=== PATIENT | female | born 1940 | race Caucasian/White ===

== ENCOUNTER 2016-06-20 22:50 | Inpatient (IN) | payer OTHER ==
[~2016-06-20] VITALS: Ht 149.9 cm; Wt 65.8 kg
[~2016-06-20 22:50] MED LIST: ASMANEX TW200 MICRO1 IH; FLOVENT 22120 INHALA; FLOVENT 22120 INHALA IH; Flovent 220 mcg IH; Inderal PO; LIPITOR20 MG; LIPITOR20 MG PO; MAXAIR AUTOHALE14 GM; MAXAIR AUTOHALE14 GM IH; NYSTATIN15 GM TP; PAIN RELIEF EX500 MG PO; PREVACID SOLUTA30 M1; PREVACID30 MG PO; Reglan PO; SINGULAIR10 MG; SINGULAIR10 MG PO; THEO-24400 MG; THEO-24400 MG PO; Ultram PO; ZYRTEC10 M3 PO; ZYRTEC5 MG PO; nexium PO
[2016-06-20 23:19] LABS: BASE EXCESS -3.8 mEq/L (-3 to +3); BICARBONATE 18.5 mEq/L (22-26); CARBOXY HGB 1.3 % (0-5); COMMENTS - BLOOD GASES C+A+; DEVICE ROOM AIR; METHEMOGLOBIN 0.7 % (0-1.5); PCO2 26 mm Hg (35-45); PO2 53 mm Hg (80-100); SITE RB; TOTAL RESP RATE 22 resp/min; pH 7.46 (7.35-7.45)
[2016-06-21] VITALS (17 sets, daily range): BP systolic 81–112; BP diastolic 43–82
[2016-06-21 00:35] LABS: CHLORIDE 108 mEq/L (99-109); POTASSIUM 3.6 mEq/L (3.7-5.4); SODIUM 136 mEq/L (136-147)
[2016-06-21 00:37] LABS: GLUCOSE 86 mg/dL (70-99)
[2016-06-21 00:38] LABS: ANION GAP 11 MEQ/L (2-14)
[2016-06-21 00:39] LABS: INTER. NORMALIZED RATIO 1.1; PROTHROMBIN TIME 11.1 (9.2-11.2); PTT 29.5 (25-32); TOTAL BILIRUBIN 0.6 mg/dL (0.0-1.0)
[2016-06-21 00:40] LABS: ALKALINE PHOSPHATASE 107 IU/L (3-129)
[2016-06-21 00:41] LABS: GFR ESTIMATE (CALCULATED) > 59 mL/min/
[2016-06-21 00:42] LABS: UREA NITROGEN (BUN) 16 mg/dL (9-23)
[2016-06-21 00:44] LABS: LIPASE 14 U/L (1.0-51.0)
[2016-06-21 00:47] LABS: TROP-I INTERPRETATION NEGATIVE; TROPONIN-I 0.01 ng/mL (0.0-0.30)
[2016-06-21 00:57] LABS: EOSINOPHIL COUNT 0.2 K/uL (0-0.3); HEMATOCRIT 37.4 % (36.0-46.0); IMMATURE GRANULOCYTE (%) 0.7 % (0.0-0.7); IMMATURE GRANULOCYTE COUNT 0.6 K/uL; LYMPHOCYTE COUNT 1.3 K/uL (1.0-2.8); MCH 32.5 PG (29.0-34.0); MCV 95.7 FL (83-99); MONOCYTE (%) 16.2 % (3-12); MONOCYTE COUNT 1.3 K/uL (0-0.8); NEUTROPHIL (%) 64.3 % (45-76); NEUTROPHIL COUNT 5.2 K/uL (1.8-6.4); RBC DIS.WIDTH-CV 12.6 % (11.8-14.6); RBC DIS.WIDTH-SD 42.7 % (39-53); RED BLOOD COUNT 3.91 M/uL (3.80-5.20); WHITE BLOOD COUNT 8.1 K/uL (4.1-10.2)
[2016-06-21 00:58] LABS: MEAN PLAT.VOLUME 10.1 uM^3 (9.5-12.4); PLATELET COUNT 139 K/uL (156-360)
[2016-06-21 01:39] LABS: CREATINE KINASE 899 IU/L (1-294)
[2016-06-21 01:57] LABS: ADD MIUA? YES; BILIRUBIN NEGATIVE; BLOOD SMALL; COLOR YELLOW ((YELLOW)); GLUCOSE (STRIP) NEGATIVE; KETONES 20; LEUKOCYTES SMALL; NITRITE NEGATIVE; PROTEIN (STRIP) 30; SPECIFIC GRAVITY 1.018 (1.000-1.030); UROBILINOGEN 0.2 MG/DL (0.2-1.0)
[2016-06-21 02:12] LABS: BACTERIA 2+ /HPF; MUCUS TRACE /LPF; RED BLOOD CELLS 0-5 /HPF (0-5); UCUL ADDED? YES
[2016-06-21 02:15] LABS: EPITHELIAL CELLS 2+ /HPF; RENAL EPITHELIAL CELLS NONE SEEN /HPF
[2016-06-21 04:08] LABS: BASE EXCESS -8.2 mEq/L (-3 to +3); BICARBONATE 15.6 mEq/L (22-26); CARBOXY HGB 1.6 % (0-5); COMMENTS - BLOOD GASES C+A+; DEVICE NC; METHEMOGLOBIN 1.4 % (0-1.5); O2 FLOW 4 L/MIN; PCO2 27 mm Hg (35-45); PO2 66 mm Hg (80-100); SITE LB; TOTAL RESP RATE 24 resp/min; pH 7.37 (7.35-7.45)
[2016-06-21 04:45] LABS: SALICYLATE < 5.0 MG/DL (15-30)
[2016-06-21 07:51] LABS: TROP-I INTERPRETATION NEGATIVE; TROPONIN-I 0.02 ng/mL (0.0-0.30)
[2016-06-21 08:07] LABS: COMMENTS - BLOOD GASES A+C+; DEVICE VENT; FI02 40 %; SITE RR
[2016-06-21 08:08] LABS: BICARBONATE 15.6 mEq/L (22-26); PCO2 29 mm Hg (35-45); PEEP 5 CM/H20; PO2 83 mm Hg (80-100); PRES. SUPPORT 10 CM/H2O; TIDAL VOLUME 500 ML; TOTAL RESP RATE 18 resp/min; pH 7.34 (7.35-7.45)
[2016-06-21 08:27] LABS: BASE EXCESS -8.9 mEq/L (-3 to +3); CARBOXY HGB 1.8 % (0-5); METHEMOGLOBIN 0.4 % (0-1.5)
[2016-06-21] MEDS ORDERED: LIPITOR20 MG PO (09:07)
[2016-06-21] MEDS ORDERED: MONTELUKAST SOD10 MG PO (09:08)
[2016-06-21] MEDS ORDERED: INDERAL20 MG PO (09:08)
[2016-06-21] MEDS ORDERED: ESOMEPRAZOLE MA40 MG PO (09:08)
[2016-06-21] MEDS ORDERED: PROAIR HFA8.5 GM IH (09:11)
[2016-06-21 09:26] LABS: CREATINE KINASE 740 IU/L (1-294); TOTAL CK 740 IU/L (1-294)
[2016-06-21 09:33] LABS: INFLUENZA A VIRAL ANTIGEN INVALID ASSAY
[2016-06-21 09:34] LABS: INFLUENZA B VIRAL ANTIGEN INVALID ASSAY
[2016-06-21 09:44] LABS: METH RESISTANT S AUREUS PCR POSITIVE (NEGATIVE)
[2016-06-21 09:51] LABS: PROBE CHECK PASS
[2016-06-21 10:06] LABS: CK-MB 2.2 ng/mL (0.0-4.9)
[2016-06-21 15:03] LABS: INTER. NORMALIZED RATIO 1.2
[2016-06-21 15:08] LABS: TROP-I INTERPRETATION NEGATIVE; TROPONIN-I 0.22 ng/mL (0.0-0.30)
[2016-06-21 16:09] LABS: PTT > 150.0 (25-32)
[2016-06-21 17:07] LABS: INFLUENZA A VIRAL ANTIGEN POSITIVE; INFLUENZA B VIRAL ANTIGEN NEGATIVE
[2016-06-22] VITALS (24 sets, daily range): BP systolic 75–110; BP diastolic 43–71
[2016-06-22 06:08] LABS: HEMATOCRIT 34.7 % (36.0-46.0); MCH 32.9 PG (29.0-34.0); MCHC 33.1 G/DL (30.0-36.0); MCV 99.1 FL (83-99); RBC DIS.WIDTH-CV 13.7 % (11.8-14.6); RBC DIS.WIDTH-SD 49.4 % (39-53); WHITE BLOOD COUNT 6.4 K/uL (4.1-10.2)
[2016-06-22 06:49] LABS: ANION GAP 12 MEQ/L (2-14); CHLORIDE 107 MEQ/L (99-109); POTASSIUM 3.5 MEQ/L (3.7-5.4); SAMPLE HEMOLYSIS CHECK 0; SAMPLE ICTERIC CHECK 0; SAMPLE LIPEMIA CHECK 0; SODIUM 134 MEQ/L (136-147); TOTAL BILIRUBIN 0.4 MG/DL (0.0-1.0)
[2016-06-22 06:54] LABS: ALKALINE PHOSPHATASE 70 IU/L (3-129); GFR ESTIMATE (CALCULATED) > 59 mL/min/; GLUCOSE 57 mg/dL (70-99); UREA NITROGEN (BUN) 7 mg/dL (9-23)
[2016-06-22 07:28] LABS: MEAN PLAT.VOLUME 9.8 uM^3 (9.5-12.4); PLATELET COUNT 126 K/uL (156-360)
[2016-06-22 09:28] LABS: MAGNESIUM 1.5 mg/dl (1.3-2.7)
[2016-06-22 12:36] LABS: CREATINE KINASE 609 IU/L (1-294)
[2016-06-23] VITALS (11 sets, daily range): BP systolic 90–132; BP diastolic 58–74
[2016-06-23 17:58] LABS: HEMATOCRIT 35.3 % (36.0-46.0); MCH 33.2 PG (29.0-34.0); MCV 97.8 FL (83-99); RBC DIS.WIDTH-CV 13.2 % (11.8-14.6); RBC DIS.WIDTH-SD 46.8 % (39-53); RED BLOOD COUNT 3.61 M/uL (3.80-5.20); WHITE BLOOD COUNT 5.1 K/uL (4.1-10.2)
[2016-06-23 18:11] LABS: EOSINOPHIL (%) 0.8 % (0-5); IMMATURE GRANULOCYTE (%) 0.6 % (0.0-0.7); LYMPHOCYTE COUNT 1.4 K/uL (1.0-2.8); MEAN PLAT.VOLUME 9.3 uM^3 (9.5-12.4); MONOCYTE (%) 12.7 % (3-12); MONOCYTE COUNT 0.7 K/uL (0-0.8); NEUTROPHIL (%) 59.2 % (45-76); PLATELET COUNT 180 K/uL (156-360)
[2016-06-23 18:19] LABS: ANION GAP 12 MEQ/L (2-14); CHLORIDE 107 MEQ/L (99-109); GFR ESTIMATE (CALCULATED) > 59 mL/min/; POTASSIUM 3.2 MEQ/L (3.7-5.4); SAMPLE HEMOLYSIS CHECK 0; SAMPLE ICTERIC CHECK 0; SAMPLE LIPEMIA CHECK 0; UREA NITROGEN (BUN) 8 mg/dL (9-23)
[2016-06-23 18:40] LABS: GLUCOSE 97 mg/dL (70-99); SODIUM 141 MEQ/L (136-147)
[2016-06-24] VITALS (7 sets, daily range): BP systolic 112–149; BP diastolic 68–80
[2016-06-24 08:57] LABS: ANION GAP 13 MEQ/L (2-14); CHLORIDE 109 MEQ/L (99-109); GFR ESTIMATE (CALCULATED) > 59 mL/min/; GLUCOSE 110 mg/dL (70-99); SAMPLE HEMOLYSIS CHECK 0; SAMPLE ICTERIC CHECK 0; SAMPLE LIPEMIA CHECK 0; SODIUM 141 MEQ/L (136-147); UREA NITROGEN (BUN) 13 mg/dL (9-23)
[2016-06-24 09:00] LABS: POTASSIUM 3.9 MEQ/L (3.7-5.4)
[2016-06-24 09:09] LABS: EOSINOPHIL (%) 0 % (0-5); IMMATURE GRANULOCYTE (%) 0.7 % (0.0-0.7); LYMPHOCYTE COUNT 0.7 K/uL (1.0-2.8); MCH 32.8 PG (29.0-34.0); MCHC 33.4 G/DL (30.0-36.0); MEAN PLAT.VOLUME 9.4 uM^3 (9.5-12.4); MONOCYTE (%) 11.3 % (3-12); MONOCYTE COUNT 0.3 K/uL (0-0.8); NEUTROPHIL (%) 62.6 % (45-76); NEUTROPHIL COUNT 1.7 K/uL (1.8-6.4); PLATELET COUNT 196 K/uL (156-360); RBC DIS.WIDTH-CV 13.2 % (11.8-14.6); RBC DIS.WIDTH-SD 47.3 % (39-53); RED BLOOD COUNT 3.57 M/uL (3.80-5.20)
[2016-06-24 09:10] LABS: WHITE BLOOD COUNT 2.8 K/uL (4.1-10.2)
[2016-06-25 00:05] VITALS: BP 153/69
[2016-06-25 04:00] VITALS: BP 113/67
[2016-06-25 08:58] LABS: ANION GAP 14 MEQ/L (2-14); CHLORIDE 105 MEQ/L (99-109); GFR ESTIMATE (CALCULATED) > 59 mL/min/; GLUCOSE 106 mg/dL (70-99); POTASSIUM 3.7 MEQ/L (3.7-5.4); SAMPLE HEMOLYSIS CHECK 0; SAMPLE ICTERIC CHECK 0; SAMPLE LIPEMIA CHECK 0; SODIUM 140 MEQ/L (136-147)
[2016-06-25 08:59] LABS: HEMATOCRIT 33.5 % (36.0-46.0); MCH 33.1 PG (29.0-34.0); MCHC 34.9 G/DL (30.0-36.0); MCV 94.9 FL (83-99); MEAN PLAT.VOLUME 8.8 uM^3 (9.5-12.4); PLATELET COUNT 237 K/uL (156-360); RBC DIS.WIDTH-SD 45.1 % (39-53); RED BLOOD COUNT 3.53 M/uL (3.80-5.20)
[2016-06-25 09:09] LABS: UREA NITROGEN (BUN) 21 mg/dL (9-23)
[2016-06-25 10:59] LABS: TROP-I INTERPRETATION NEGATIVE; TROPONIN-I < 0.01 ng/mL (0.0-0.30)
[2016-06-25 11:40] VITALS: BP 146/78
[2016-06-25 15:17] VITALS: BP 138/78
[2016-06-25 20:32] VITALS: BP 144/88
[2016-06-26] VITALS: BP 132/81
[2016-06-26 04:11] LABS: HEMATOCRIT 33.8 % (36.0-46.0); MCH 32.6 PG (29.0-34.0); MCHC 34.3 G/DL (30.0-36.0); MCV 94.9 FL (83-99); MEAN PLAT.VOLUME 8.7 uM^3 (9.5-12.4); PLATELET COUNT 274 K/uL (156-360); RBC DIS.WIDTH-CV 12.3 % (11.8-14.6); RBC DIS.WIDTH-SD 41.3 % (39-53); RED BLOOD COUNT 3.56 M/uL (3.80-5.20); WHITE BLOOD COUNT 6.9 K/uL (4.1-10.2)
[2016-06-26 04:24] LABS: CHLORIDE 105 mEq/L (99-109); POTASSIUM 3.8 mEq/L (3.7-5.4); SODIUM 139 mEq/L (136-147)
[2016-06-26 04:26] LABS: GLUCOSE 101 mg/dL (70-99)
[2016-06-26 04:27] LABS: ANION GAP 11 MEQ/L (2-14)
[2016-06-26 04:30] LABS: GFR ESTIMATE (CALCULATED) > 59 mL/min/
[2016-06-26 04:31] LABS: UREA NITROGEN (BUN) 29 mg/dL (9-23)
[2016-06-26 07:27] VITALS: BP 137/82
[2016-06-26 15:28] VITALS: BP 141/73
[2016-06-26 21:05] VITALS: BP 140/86
[2016-06-27] VITALS: BP 124/68
[2016-06-27 07:45] LABS: HEMATOCRIT 33.6 % (36.0-46.0); MCH 32.7 PG (29.0-34.0); MCHC 34.5 G/DL (30.0-36.0); MCV 94.6 FL (83-99); MEAN PLAT.VOLUME 9.1 uM^3 (9.5-12.4); PLATELET COUNT 242 K/uL (156-360); RBC DIS.WIDTH-CV 12.7 % (11.8-14.6); RBC DIS.WIDTH-SD 44.1 % (39-53); RED BLOOD COUNT 3.55 M/uL (3.80-5.20)
[2016-06-27 07:58] LABS: ANION GAP 10 MEQ/L (2-14); CHLORIDE 104 MEQ/L (99-109); GFR ESTIMATE (CALCULATED) > 59 mL/min/; GLUCOSE 112 mg/dL (70-99); POTASSIUM 3.8 MEQ/L (3.7-5.4); SAMPLE HEMOLYSIS CHECK 0; SAMPLE ICTERIC CHECK 0; SAMPLE LIPEMIA CHECK 0; SODIUM 137 MEQ/L (136-147); UREA NITROGEN (BUN) 34 mg/dL (9-23)
[2016-06-27 08:07] LABS: WHITE BLOOD COUNT 9.1 K/uL (4.1-10.2)
[2016-06-27 08:37] VITALS: BP 136/77
[2016-06-27 15:43] VITALS: BP 137/85
[2016-06-27 19:38] VITALS: BP 136/84
[2016-06-27 22:53] LABS: HEMATOCRIT 36.6 % (36.0-46.0); MCV 93.6 FL (83-99)
[2016-06-27 23:43] VITALS: BP 118/79
[2016-06-28 07:33] VITALS: BP 130/74
[2016-06-28 12:22] LABS: HEMATOCRIT 35.6 % (36.0-46.0); MCH 32.9 PG (29.0-34.0); MCHC 35.1 G/DL (30.0-36.0); MCV 93.7 FL (83-99); MEAN PLAT.VOLUME 9.7 uM^3 (9.5-12.4); PLATELET COUNT 301 K/uL (156-360); RBC DIS.WIDTH-CV 12.7 % (11.8-14.6); WHITE BLOOD COUNT 9.2 K/uL (4.1-10.2)
[2016-06-28 12:39] LABS: ANION GAP 9 MEQ/L (2-14); CHLORIDE 103 MEQ/L (99-109); POTASSIUM 3.4 MEQ/L (3.7-5.4); SAMPLE HEMOLYSIS CHECK 0; SAMPLE ICTERIC CHECK 0; SAMPLE LIPEMIA CHECK 0; SODIUM 136 MEQ/L (136-147)
[2016-06-28 12:41] LABS: TOTAL BILIRUBIN 0.8 MG/DL (0.0-1.0)
[2016-06-28 12:45] LABS: ALKALINE PHOSPHATASE 52 IU/L (3-129); GFR ESTIMATE (CALCULATED) > 59 mL/min/; GLUCOSE 101 mg/dL (70-99); UREA NITROGEN (BUN) 36 mg/dL (9-23)
[2016-06-28 15:59] VITALS: BP 127/72
[2016-06-28 16:07] LABS: INTERNAL CONTROL VALID? YES
[2016-06-28 23:30] VITALS: BP 121/72
[2016-06-29 08:21] VITALS: BP 124/65
[2016-06-29 09:20] LABS: ANION GAP 11 MEQ/L (2-14); CHLORIDE 105 MEQ/L (99-109); POTASSIUM 3.6 MEQ/L (3.7-5.4); SAMPLE HEMOLYSIS CHECK 0; SAMPLE ICTERIC CHECK 0; SAMPLE LIPEMIA CHECK 0; SODIUM 138 MEQ/L (136-147)
[2016-06-29 09:26] LABS: GFR ESTIMATE (CALCULATED) > 59 mL/min/; GLUCOSE 73 mg/dL (70-99); UREA NITROGEN (BUN) 31 mg/dL (9-23)
[2016-06-29 09:59] LABS: HEMATOCRIT 35.5 % (36.0-46.0); MCH 32.7 PG (29.0-34.0); MCHC 34.4 G/DL (30.0-36.0); MCV 95.2 FL (83-99); MEAN PLAT.VOLUME 9.9 uM^3 (9.5-12.4); PLATELET COUNT 333 K/uL (156-360); RBC DIS.WIDTH-CV 12.7 % (11.8-14.6); RBC DIS.WIDTH-SD 44.2 % (39-53); RED BLOOD COUNT 3.73 M/uL (3.80-5.20)
[2016-06-29 10:11] LABS: WHITE BLOOD COUNT 12.3 K/uL (4.1-10.2)
[2016-06-29 12:17] VITALS: BP 104/56
[2016-06-29 16:03] VITALS: BP 112/60
[2016-06-29 23:55] VITALS: BP 110/53
[2016-06-30 06:26] LABS: POINT-OF-CARE METER ID UU14188625
[2016-06-30 07:32] LABS: ANION GAP 12 MEQ/L (2-14); CHLORIDE 108 MEQ/L (99-109); GFR ESTIMATE (CALCULATED) > 59 mL/min/; SAMPLE HEMOLYSIS CHECK 1; SAMPLE ICTERIC CHECK 0; SAMPLE LIPEMIA CHECK 0; SODIUM 140 MEQ/L (136-147); UREA NITROGEN (BUN) 24 mg/dL (9-23)
[2016-06-30 07:36] LABS: GLUCOSE 101 mg/dL (70-99)
[2016-06-30 07:43] VITALS: BP 114/62
[2016-06-30 07:49] LABS: HEMATOCRIT 32.9 % (36.0-46.0); MCH 31.4 PG (29.0-34.0); MCHC 32.8 G/DL (30.0-36.0); MCV 95.6 FL (83-99); PLATELET COUNT 305 K/uL (156-360); RBC DIS.WIDTH-CV 13.1 % (11.8-14.6); RBC DIS.WIDTH-SD 45.6 % (39-53); RED BLOOD COUNT 3.44 M/uL (3.80-5.20); WHITE BLOOD COUNT 10.1 K/uL (4.1-10.2)
[2016-06-30 09:15] LABS: EOSINOPHIL (%) 0 % (0-5); HEMATOLOGY COMMENT 1 SMEAR COMPATIBLE; IMMATURE GRANULOCYTE (%) 2.7 % (0.0-0.7); IMMATURE GRANULOCYTE COUNT 0.3 K/uL; LYMPHOCYTE COUNT 0.7 K/uL (1.0-2.8); MONOCYTE (%) 6.6 % (3-12); MONOCYTE COUNT 0.7 K/uL (0-0.8); NEUTROPHIL COUNT 8.5 K/uL (1.8-6.4); USER ID CL
[2016-07-01] VITALS: BP 110/60
[2016-07-01 07:38] VITALS: BP 112/62
[2016-07-01 10:43] LABS: HEMATOCRIT 35.7 % (36.0-46.0); MCH 31.3 PG (29.0-34.0); MCHC 32.2 G/DL (30.0-36.0); MEAN PLAT.VOLUME 9.6 uM^3 (9.5-12.4); PLATELET COUNT 322 K/uL (156-360); RBC DIS.WIDTH-CV 13.2 % (11.8-14.6); RBC DIS.WIDTH-SD 46.2 % (39-53); RED BLOOD COUNT 3.68 M/uL (3.80-5.20); WHITE BLOOD COUNT 14.9 K/uL (4.1-10.2)
[2016-07-01 11:26] LABS: ANION GAP 12 MEQ/L (2-14); CHLORIDE 108 MEQ/L (99-109); GFR ESTIMATE (CALCULATED) > 59 mL/min/; GLUCOSE 136 mg/dL (70-99); POTASSIUM 3.1 MEQ/L (3.7-5.4); SAMPLE HEMOLYSIS CHECK 0; SAMPLE ICTERIC CHECK 0; SAMPLE LIPEMIA CHECK 0; SODIUM 142 MEQ/L (136-147); UREA NITROGEN (BUN) 24 mg/dL (9-23)
[2016-07-01 15:45] VITALS: BP 116/60
[2016-07-02 00:23] VITALS: BP 150/58
[2016-07-02 07:41] VITALS: BP 122/67
[2016-07-02 09:37] LABS: HEMATOCRIT 35.1 % (36.0-46.0); MCH 30.9 PG (29.0-34.0); MCHC 32.2 G/DL (30.0-36.0); MCV 95.9 FL (83-99); MEAN PLAT.VOLUME 9.6 uM^3 (9.5-12.4); PLATELET COUNT 374 K/uL (156-360); RBC DIS.WIDTH-CV 13.1 % (11.8-14.6); RBC DIS.WIDTH-SD 46.1 % (39-53); RED BLOOD COUNT 3.66 M/uL (3.80-5.20); WHITE BLOOD COUNT 16.2 K/uL (4.1-10.2)
[2016-07-02 10:02] LABS: ANION GAP 12 MEQ/L (2-14); CHLORIDE 112 MEQ/L (99-109); GFR ESTIMATE (CALCULATED) > 59 mL/min/; GLUCOSE 130 mg/dL (70-99); SAMPLE HEMOLYSIS CHECK 0; SAMPLE ICTERIC CHECK 0; SAMPLE LIPEMIA CHECK 0; SODIUM 143 MEQ/L (136-147); UREA NITROGEN (BUN) 23 mg/dL (9-23)
[2016-07-02 10:03] LABS: POTASSIUM 4.1 MEQ/L (3.7-5.4)
[2016-07-02 16:00] VITALS: BP 124/72
[2016-07-02 23:50] VITALS: BP 115/65
[2016-07-03 08:32] VITALS: BP 122/76
[2016-07-03 09:30] LABS: HEMATOCRIT 30.9 % (36.0-46.0); MCH 31.8 PG (29.0-34.0); MCHC 32.7 G/DL (30.0-36.0); MCV 97.2 FL (83-99); MEAN PLAT.VOLUME 9.6 uM^3 (9.5-12.4); PLATELET COUNT 266 K/uL (156-360); RBC DIS.WIDTH-CV 13.2 % (11.8-14.6); RBC DIS.WIDTH-SD 46.7 % (39-53); RED BLOOD COUNT 3.18 M/uL (3.80-5.20); WHITE BLOOD COUNT 16.7 K/uL (4.1-10.2)
[2016-07-03 09:54] LABS: ANION GAP 9 MEQ/L (2-14); CHLORIDE 113 MEQ/L (99-109); GFR ESTIMATE (CALCULATED) > 59 mL/min/; POTASSIUM 3.5 MEQ/L (3.7-5.4); SAMPLE HEMOLYSIS CHECK 0; SAMPLE ICTERIC CHECK 0; SAMPLE LIPEMIA CHECK 0; SODIUM 142 MEQ/L (136-147); UREA NITROGEN (BUN) 24 mg/dL (9-23)
[2016-07-03 09:55] LABS: GLUCOSE 66 mg/dL (70-99)
[2016-07-03 12:40] VITALS: BP 100/62
[2016-07-03 15:02] LABS: INTER. NORMALIZED RATIO 1.1; PROTHROMBIN TIME 11.4 (9.2-11.2)
[2016-07-03 15:11] LABS: PTT 24.3 (25-32)
[2016-07-03 23:47] VITALS: BP 104/59
[2016-07-04 07:04] LABS: HEMATOCRIT 30.9 % (36.0-46.0); MCH 32.2 PG (29.0-34.0); MCV 97.5 FL (83-99); PLATELET COUNT 250 K/uL (156-360); RBC DIS.WIDTH-CV 13.4 % (11.8-14.6); RBC DIS.WIDTH-SD 47.3 % (39-53); RED BLOOD COUNT 3.17 M/uL (3.80-5.20); WHITE BLOOD COUNT 12.1 K/uL (4.1-10.2)
[2016-07-04 07:58] VITALS: BP 111/55
[2016-07-04 09:37] LABS: ANION GAP 8 MEQ/L (2-14); CHLORIDE 111 MEQ/L (99-109); GFR ESTIMATE (CALCULATED) > 59 mL/min/; GLUCOSE 68 mg/dL (70-99); POTASSIUM 3.3 MEQ/L (3.7-5.4); SAMPLE HEMOLYSIS CHECK 0; SAMPLE ICTERIC CHECK 0; SAMPLE LIPEMIA CHECK 0; SODIUM 140 MEQ/L (136-147); UREA NITROGEN (BUN) 22 mg/dL (9-23)
[2016-07-04 11:51] LABS: INTER. NORMALIZED RATIO 1.1; PROTHROMBIN TIME 11.4 (9.2-11.2)
[2016-07-04 11:55] LABS: PTT 24.8 (25-32)
[2016-07-04 15:03] VITALS: BP 93/51
[2016-07-04 19:14] LABS: HEMATOCRIT 31.5 % (36.0-46.0); MCV 97.2 FL (83-99)
[2016-07-05] VITALS: BP 102/56
[2016-07-05 02:10] LABS: POINT-OF-CARE METER ID UU14188625
[2016-07-05 02:15] LABS: HEMATOCRIT 30.1 % (36.0-46.0); MCV 96.5 FL (83-99)
[2016-07-05 06:48] LABS: POINT-OF-CARE METER ID UU14188625
[2016-07-05 07:48] VITALS: BP 122/72
[2016-07-05 08:24] LABS: HEMATOCRIT 30.8 % (36.0-46.0); MCV 95.4 FL (83-99)
[2016-07-05 12:06] LABS: ANION GAP 10 MEQ/L (2-14); CHLORIDE 110 MEQ/L (99-109); GFR ESTIMATE (CALCULATED) > 59 mL/min/; POTASSIUM 3.9 MEQ/L (3.7-5.4); SAMPLE HEMOLYSIS CHECK 0; SAMPLE ICTERIC CHECK 0; SAMPLE LIPEMIA CHECK 0; SODIUM 137 MEQ/L (136-147); UREA NITROGEN (BUN) 21 mg/dL (9-23)
[2016-07-05 12:15] LABS: GLUCOSE 160 mg/dL (70-99)
[2016-07-05 14:22] LABS: ABS NEUTROPHIL COUNT 12.77; ANISOCYTOSIS OCC; BURR CELLS OCC; EOSINOPHIL (%) 0.1 % (0-5); IMMATURE GRANULOCYTE (%) 5.1 % (0.0-0.7); IMMATURE GRANULOCYTE COUNT 0.7 K/uL; LYMPHOCYTE COUNT 1.2 K/uL (1.0-2.8); MCH 32.2 PG (29.0-34.0); MCHC 33.8 G/DL (30.0-36.0); MEAN PLAT.VOLUME 10.2 uM^3 (9.5-12.4); MONOCYTE (%) 3.4 % (3-12); MONOCYTE COUNT 0.5 K/uL (0-0.8); NEUTROPHIL (%) 82.8 % (45-76); NEUTROPHIL COUNT 11.6 K/uL (1.8-6.4); PLAT.SUFFICIENCY ADEQUATE; PLATELET COUNT 185 K/uL (156-360); RBC DIS.WIDTH-CV 13.1 % (11.8-14.6); RBC DIS.WIDTH-SD 45.5 % (39-53); RED BLOOD COUNT 3.23 M/uL (3.80-5.20); USER ID CL
[2016-07-05 15:24] LABS: HEMATOCRIT 29.8 % (36.0-46.0); MCV 95.5 FL (83-99)
[2016-07-05 23:01] LABS: HEMATOCRIT 29.5 % (36.0-46.0); MCV 96.7 FL (83-99)
[2016-07-06] VITALS: BP 113/68
== END 2016-07-06 01:12 | disposition short-term general hospital (02) | DRG 853 ==
LOC: EME 22:50 → 4WEST 06-21 03:40 → 5SOUTH 06-21 03:40 → EDOF 06-21 03:40 → 4WEST 06-21 08:24 → 5SOUTH 06-23 12:00
PROVIDERS: Emergency Medicine; Hospitalist; Internal Medicine; Internal Medicine Pulmonary Disease; Physician Assistant; Physician Assistant Medical; Physician Assistant Surgical; Student in an Organized Health Care Education/Training Program; Surgery
DX: A41.89 Other specified sepsis (principal); J96.01 Acute respiratory failure with hypoxia; J11.1 Influenza due to unidentified influenza virus with other respiratory manifestations; N39.0 Urinary tract infection, site not specified; B96.20 Unspecified Escherichia coli [E. coli] as the cause of diseases classified elsewhere; J45.31 Mild persistent asthma with (acute) exacerbation; I82.422 Acute embolism and thrombosis of left iliac vein; K56.5 Intestinal adhesions [bands] with obstruction (postinfection); K92.2 Gastrointestinal hemorrhage, unspecified; K31.7 Polyp of stomach and duodenum; B37.81 Candidal esophagitis; M62.82 Rhabdomyolysis; S22.43XA Multiple fractures of ribs, bilateral, initial encounter for closed fracture; W18.30XA Fall on same level, unspecified, initial encounter; Y92.002 Bathroom of unspecified non-institutional (private) residence as the place of occurrence of the external cause; E87.6 Hypokalemia; E83.51 Hypocalcemia; I95.9 Hypotension, unspecified; E78.5 Hyperlipidemia, unspecified; K21.9 Gastro-esophageal reflux disease without esophagitis; R00.0 Tachycardia, unspecified; K25.9 Gastric ulcer, unspecified as acute or chronic, without hemorrhage or perforation; Z22.322 Carrier or suspected carrier of Methicillin resistant Staphylococcus aureus; Z85.828 Personal history of other malignant neoplasm of skin; Z86.010 Personal history of colon polyps; Z90.49 Acquired absence of other specified parts of digestive tract
CPT/HCPCS: 36600; 70450; 71010; 71250; 74020; 74176; 78582; 80048; 80048 91; 80053; 81003; 82040; 82272; 82550; 82550 91; 82553; 82803; 82948; 83605; 83690; 83735; 83880; 84439; 84443; 84481; 84484; 85014; 85018; 85025; 85027; 85610; 85730; 87040; 87070; 87077; 87086; 87186; 87205; 87502; 87641; 88108; 88305; 88312; 88342 TC; 93005; 93306; 93970; 93971; 94002; 94640; 94640 76; 94667; 94668; 94760; 94799; 97530 GO; 97530 GP; 99202; 99281; 99285; A9540; A9567; C1769; C1894; C9113; G0480; J0692; J0696; J1200; J1650; J1940; J2250; J2405; J2765; J2920; J2930; J3010; J3370; J7030; J7040; J7050; J7512

== ENCOUNTER 2016-07-10 15:20 | Inpatient (IN) | payer OTHER ==
[~2016-07-10] VITALS: Ht 149.9 cm; Wt 54.2 kg
[~2016-07-10 15:20] MED LIST changes: +ESOMEPRAZOLE MA40 MG PO; +INDERAL20 MG PO; +MONTELUKAST SOD10 MG PO; +PROAIR HFA8.5 GM IH
[2016-07-10 21:00] VITALS: BP 102/75
[2016-07-10 23:45] VITALS: BP 96/52
[2016-07-11] VITALS (8 sets, daily range): BP systolic 87–138; BP diastolic 51–80
[2016-07-11 06:30] LABS: HEMATOCRIT 23.7 % (36.0-46.0); MCH 29.5 PG (29.0-34.0); MCHC 32.9 G/DL (30.0-36.0); MEAN PLAT.VOLUME 9.2 uM^3 (9.5-12.4); PLATELET COUNT 143 K/uL (156-360); RBC DIS.WIDTH-CV 17.4 % (11.8-14.6); RBC DIS.WIDTH-SD 55.8 % (39-53); RED BLOOD COUNT 2.64 M/uL (3.80-5.20)
[2016-07-11 06:31] LABS: MCV 89.8 FL (83-99)
[2016-07-11 06:55] LABS: ANION GAP 7 MEQ/L (2-14); CHLORIDE 108 MEQ/L (99-109); GFR ESTIMATE (CALCULATED) > 59 mL/min/; GLUCOSE 76 mg/dL (70-99); POTASSIUM 3.3 MEQ/L (3.7-5.4); SAMPLE HEMOLYSIS CHECK 0; SAMPLE ICTERIC CHECK 0; SAMPLE LIPEMIA CHECK 0; SODIUM 135 MEQ/L (136-147); UREA NITROGEN (BUN) 16 mg/dL (9-23)
[2016-07-11 07:46] LABS: ADD MIUA? YES; BILIRUBIN NEGATIVE; BLOOD MODERATE; COLOR YELLOW ((YELLOW)); GLUCOSE (STRIP) NEGATIVE; KETONES NEGATIVE; LEUKOCYTES SMALL; NITRITE NEGATIVE; PROTEIN (STRIP) NEGATIVE; UROBILINOGEN 0.2 MG/DL (0.2-1.0)
[2016-07-11 08:33] LABS: BACTERIA RARE /HPF; BUDDING YEAST 4+; EPITHELIAL CELLS RARE /HPF; MUCUS TRACE /LPF; RED BLOOD CELLS 15-20 /HPF (0-5); UCUL ADDED? NO
[2016-07-11 16:21] LABS: HEMATOCRIT 21.4 % (36.0-46.0); MCH 29.7 PG (29.0-34.0); MCHC 33.2 G/DL (30.0-36.0); MCV 89.5 FL (83-99); MEAN PLAT.VOLUME 9.2 uM^3 (9.5-12.4); PLATELET COUNT 140 K/uL (156-360); RBC DIS.WIDTH-CV 17.2 % (11.8-14.6); RBC DIS.WIDTH-SD 54.9 % (39-53); RED BLOOD COUNT 2.39 M/uL (3.80-5.20); WHITE BLOOD COUNT 7.9 K/uL (4.1-10.2)
[2016-07-12 03:15] VITALS: BP 118/55
[2016-07-12 06:28] LABS: HEMATOCRIT 26.3 % (36.0-46.0); MCH 30.1 PG (29.0-34.0); MCHC 33.5 G/DL (30.0-36.0); MCV 90.1 FL (83-99); MEAN PLAT.VOLUME 9.4 uM^3 (9.5-12.4); PLATELET COUNT 141 K/uL (156-360); RBC DIS.WIDTH-CV 16.9 % (11.8-14.6); WHITE BLOOD COUNT 8.8 K/uL (4.1-10.2)
[2016-07-12 06:30] LABS: RED BLOOD COUNT 2.92 M/uL (3.80-5.20)
[2016-07-12 07:22] LABS: DELETE MACHINE DIFF? YES
[2016-07-12 07:24] LABS: ABS NEUTROPHIL COUNT 6.14; ANISOCYTOSIS 2+; EOSINOPHIL ABS CT 0.18; HYPOCHROMASIA 1+; MACROCYTES 1+; MICROCYTOSIS OCC; PLAT.SUFFICIENCY DECREASED; POLYCHROMASIA OCC; SPHEROCYTES 1+; USER ID TLW
[2016-07-12 07:30] VITALS: BP 121/59
[2016-07-12 07:35] LABS: ANION GAP 5 MEQ/L (2-14); CHLORIDE 109 MEQ/L (99-109); GFR ESTIMATE (CALCULATED) > 59 mL/min/; GLUCOSE 79 mg/dL (70-99); MAGNESIUM 1.3 mg/dl (1.3-2.7); POTASSIUM 3.9 MEQ/L (3.7-5.4); SAMPLE HEMOLYSIS CHECK 0; SAMPLE ICTERIC CHECK 0; SAMPLE LIPEMIA CHECK 0; SODIUM 137 MEQ/L (136-147); UREA NITROGEN (BUN) 14 mg/dL (9-23)
[2016-07-12 11:15] LABS: ADD MIUA? YES; BILIRUBIN NEGATIVE; BLOOD MODERATE; COLOR YELLOW ((YELLOW)); GLUCOSE (STRIP) NEGATIVE; KETONES NEGATIVE; LEUKOCYTES TRACE; NITRITE NEGATIVE; PROTEIN (STRIP) NEGATIVE; SPECIFIC GRAVITY 1.005 (1.000-1.030); UROBILINOGEN 0.2 MG/DL (0.2-1.0)
[2016-07-12 11:24] VITALS: BP 113/67
[2016-07-12 11:33] LABS: BACTERIA RARE /HPF; EPITHELIAL CELLS 1+ /HPF; MUCUS NONE SEEN /LPF; RED BLOOD CELLS 30-40 /HPF (0-5); WHITE BLOOD CELLS 0-5 /HPF (0-5)
[2016-07-12 13:02] LABS: HEMATOCRIT 28.7 % (36.0-46.0); MCH 30.2 PG (29.0-34.0); MCHC 33.4 G/DL (30.0-36.0); MCV 90.3 FL (83-99); MEAN PLAT.VOLUME 9.7 uM^3 (9.5-12.4); NRBC (%) 0.2 /100 WBC (0-0); PLATELET COUNT 153 K/uL (156-360); RBC DIS.WIDTH-CV 16.9 % (11.8-14.6); RBC DIS.WIDTH-SD 54.5 % (39-53); RED BLOOD COUNT 3.18 M/uL (3.80-5.20); WHITE BLOOD COUNT 9.2 K/uL (4.1-10.2)
[2016-07-12 14:00] LABS: EOSINOPHIL (%) 1.3 % (0-5); EOSINOPHIL COUNT 0.1 K/uL (0-0.3); HEMATOLOGY COMMENT 1 SMEAR COMPATIBLE; IMMATURE GRANULOCYTE COUNT 0.5 K/uL; LYMPHOCYTE COUNT 1.4 K/uL (1.0-2.8); MONOCYTE (%) 9.1 % (3-12); MONOCYTE COUNT 0.8 K/uL (0-0.8); NEUTROPHIL (%) 69.7 % (45-76); NEUTROPHIL COUNT 6.4 K/uL (1.8-6.4); PLAT.SUFFICIENCY DECREASED; USER ID TLW
[2016-07-12 16:22] VITALS: BP 118/57
[2016-07-12 21:45] VITALS: BP 129/77
[2016-07-13] VITALS (7 sets, daily range): BP systolic 96–140; BP diastolic 53–87
[2016-07-13 07:43] LABS: HEMATOCRIT 28.1 % (36.0-46.0); MCH 30.2 PG (29.0-34.0); MCHC 33.1 G/DL (30.0-36.0); MCV 91.2 FL (83-99); MEAN PLAT.VOLUME 9.5 uM^3 (9.5-12.4); PLATELET COUNT 163 K/uL (156-360); RBC DIS.WIDTH-CV 17.1 % (11.8-14.6); RBC DIS.WIDTH-SD 55.3 % (39-53); RED BLOOD COUNT 3.08 M/uL (3.80-5.20); WHITE BLOOD COUNT 9.2 K/uL (4.1-10.2)
[2016-07-13 08:12] LABS: ANION GAP 5 MEQ/L (2-14); CHLORIDE 110 MEQ/L (99-109); GFR ESTIMATE (CALCULATED) > 59 mL/min/; GLUCOSE 84 mg/dL (70-99); MAGNESIUM 1.4 mg/dl (1.3-2.7); POTASSIUM 4.2 MEQ/L (3.7-5.4); SAMPLE HEMOLYSIS CHECK 0; SAMPLE ICTERIC CHECK 0; SAMPLE LIPEMIA CHECK 0; SODIUM 138 MEQ/L (136-147); UREA NITROGEN (BUN) 14 mg/dL (9-23)
[2016-07-13 08:21] LABS: EOSINOPHIL (%) 0.9 % (0-5); EOSINOPHIL COUNT 0.1 K/uL (0-0.3); HEMATOLOGY COMMENT 1 REV; IMMATURE GRANULOCYTE (%) 3.3 % (0.0-0.7); IMMATURE GRANULOCYTE COUNT 0.3 K/uL; LYMPHOCYTE COUNT 1.7 K/uL (1.0-2.8); MONOCYTE (%) 7.3 % (3-12); MONOCYTE COUNT 0.7 K/uL (0-0.8); NEUTROPHIL (%) 70.4 % (45-76); NEUTROPHIL COUNT 6.5 K/uL (1.8-6.4); USER ID NJR
[2016-07-14 04:21] VITALS: BP 101/67
[2016-07-14 08:29] VITALS: BP 143/53
[2016-07-14 08:42] LABS: HEMATOCRIT 28.6 % (36.0-46.0); MCH 29.4 PG (29.0-34.0); MCHC 31.8 G/DL (30.0-36.0); MCV 92.3 FL (83-99); MEAN PLAT.VOLUME 9.9 uM^3 (9.5-12.4); PLATELET COUNT 202 K/uL (156-360); RBC DIS.WIDTH-CV 17.1 % (11.8-14.6); RBC DIS.WIDTH-SD 55.8 % (39-53); WHITE BLOOD COUNT 7.8 K/uL (4.1-10.2)
[2016-07-14 08:53] LABS: ANION GAP 6 MEQ/L (2-14); CHLORIDE 108 MEQ/L (99-109); GFR ESTIMATE (CALCULATED) > 59 mL/min/; GLUCOSE 81 mg/dL (70-99); POTASSIUM 4.6 MEQ/L (3.7-5.4); SAMPLE HEMOLYSIS CHECK 0; SAMPLE ICTERIC CHECK 0; SAMPLE LIPEMIA CHECK 0; SODIUM 137 MEQ/L (136-147); UREA NITROGEN (BUN) 14 mg/dL (9-23)
[2016-07-14 12:20] VITALS: BP 116/77
[2016-07-14 15:21] LABS: MAGNESIUM 2.2 mg/dl (1.3-2.7)
[2016-07-14 15:31] LABS: C DIFF TOXIN NEGATIVE (NEGATIVE)
[2016-07-14 15:36] LABS: PROBE CHECK PASS; SPECIMEN PROCESSING CONTROL PASS
[2016-07-14 15:52] VITALS: BP 130/55
[2016-07-14 19:55] VITALS: BP 120/61
[2016-07-14 23:23] VITALS: BP 99/56
[2016-07-15 04:03] VITALS: BP 107/55
[2016-07-15 07:01] LABS: HEMATOCRIT 23.6 % (36.0-46.0); MCH 29.7 PG (29.0-34.0); MCHC 32.2 G/DL (30.0-36.0); MCV 92.2 FL (83-99); MEAN PLAT.VOLUME 10.3 uM^3 (9.5-12.4); PLATELET COUNT 210 K/uL (156-360); RBC DIS.WIDTH-CV 16.5 % (11.8-14.6); RBC DIS.WIDTH-SD 55.2 % (39-53); RED BLOOD COUNT 2.56 M/uL (3.80-5.20); WHITE BLOOD COUNT 8.7 K/uL (4.1-10.2)
[2016-07-15 07:14] LABS: ANION GAP 5 MEQ/L (2-14); CHLORIDE 109 MEQ/L (99-109); GFR ESTIMATE (CALCULATED) 57 mL/min/; GLUCOSE 78 mg/dL (70-99); POTASSIUM 4.7 MEQ/L (3.7-5.4); SAMPLE HEMOLYSIS CHECK 0; SAMPLE ICTERIC CHECK 0; SAMPLE LIPEMIA CHECK 0; SODIUM 135 MEQ/L (136-147); UREA NITROGEN (BUN) 13 mg/dL (9-23)
[2016-07-15 07:19] VITALS: BP 112/55
[2016-07-15 11:26] VITALS: BP 111/59
[2016-07-15 13:06] LABS: HEMATOCRIT 27.8 % (36.0-46.0); MCH 30.2 PG (29.0-34.0); MCHC 32.7 G/DL (30.0-36.0); MCV 92.4 FL (83-99); MEAN PLAT.VOLUME 9.9 uM^3 (9.5-12.4); PLATELET COUNT 228 K/uL (156-360); RBC DIS.WIDTH-CV 16.3 % (11.8-14.6); RBC DIS.WIDTH-SD 54.8 % (39-53); RED BLOOD COUNT 3.01 M/uL (3.80-5.20); WHITE BLOOD COUNT 8.2 K/uL (4.1-10.2)
[2016-07-15 13:26] LABS: EOSINOPHIL (%) 1.7 % (0-5); EOSINOPHIL COUNT 0.1 K/uL (0-0.3); IMMATURE GRANULOCYTE (%) 1.8 % (0.0-0.7); IMMATURE GRANULOCYTE COUNT 0.2 K/uL; LYMPHOCYTE COUNT 1.6 K/uL (1.0-2.8); MONOCYTE (%) 7.8 % (3-12); MONOCYTE COUNT 0.6 K/uL (0-0.8); NEUTROPHIL (%) 69.1 % (45-76); NEUTROPHIL COUNT 5.7 K/uL (1.8-6.4)
[2016-07-15 14:54] LABS: HEMATOLOGY COMMENT 1 SMEAR COMPATIBLE; PLAT.SUFFICIENCY NORMAL
[2016-07-15 15:30] VITALS: BP 117/56
[2016-07-15 19:15] VITALS: BP 102/55
[2016-07-16] VITALS (7 sets, daily range): BP systolic 104–120; BP diastolic 47–83
[2016-07-16 06:53] LABS: HEMATOCRIT 26.9 % (36.0-46.0); MCH 29.4 PG (29.0-34.0); MCV 91.8 FL (83-99); MEAN PLAT.VOLUME 9.6 uM^3 (9.5-12.4); PLATELET COUNT 249 K/uL (156-360); RBC DIS.WIDTH-CV 16.3 % (11.8-14.6); RBC DIS.WIDTH-SD 53.6 % (39-53); RED BLOOD COUNT 2.93 M/uL (3.80-5.20)
[2016-07-16 07:10] LABS: EOSINOPHIL (%) 2.8 % (0-5); EOSINOPHIL COUNT 0.2 K/uL (0-0.3); IMMATURE GRANULOCYTE (%) 4.1 % (0.0-0.7); IMMATURE GRANULOCYTE COUNT 0.3 K/uL; LYMPHOCYTE COUNT 1.6 K/uL (1.0-2.8); MONOCYTE (%) 9.1 % (3-12); MONOCYTE COUNT 0.6 K/uL (0-0.8); NEUTROPHIL (%) 60.4 % (45-76); NEUTROPHIL COUNT 4.2 K/uL (1.8-6.4)
[2016-07-16 07:19] LABS: ANION GAP 7 MEQ/L (2-14); CHLORIDE 106 MEQ/L (99-109); GFR ESTIMATE (CALCULATED) > 59 mL/min/; GLUCOSE 86 mg/dL (70-99); MAGNESIUM 1.9 mg/dl (1.3-2.7); SAMPLE HEMOLYSIS CHECK 0; SAMPLE ICTERIC CHECK 0; SAMPLE LIPEMIA CHECK 0; SODIUM 136 MEQ/L (136-147); UREA NITROGEN (BUN) 12 mg/dL (9-23)
[2016-07-16 07:42] LABS: HEMATOLOGY COMMENT 1 SMEAR COMPATIBLE; PLAT.SUFFICIENCY ADEQUATE; USER ID TLW
[2016-07-16 20:47] LABS: INTERNAL CONTROL VALID? YES
[2016-07-17 03:54] VITALS: BP 113/58
[2016-07-17 05:32] LABS: LUPA PHOSPHOLIPID NEUTRALIZ Negative (Negative)
[2016-07-17 06:46] LABS: HEMATOCRIT 27.9 % (36.0-46.0); MCH 29.1 PG (29.0-34.0); MCHC 31.5 G/DL (30.0-36.0); MCV 92.4 FL (83-99); MEAN PLAT.VOLUME 9.4 uM^3 (9.5-12.4); PLATELET COUNT 303 K/uL (156-360); RBC DIS.WIDTH-CV 16.1 % (11.8-14.6); RBC DIS.WIDTH-SD 54.3 % (39-53); RED BLOOD COUNT 3.02 M/uL (3.80-5.20)
[2016-07-17 07:14] LABS: ANION GAP 5 MEQ/L (2-14); CHLORIDE 107 MEQ/L (99-109); GFR ESTIMATE (CALCULATED) > 59 mL/min/; GLUCOSE 84 mg/dL (70-99); MAGNESIUM 1.9 mg/dl (1.3-2.7); POTASSIUM 3.9 MEQ/L (3.7-5.4); SAMPLE HEMOLYSIS CHECK 0; SAMPLE ICTERIC CHECK 0; SAMPLE LIPEMIA CHECK 0; SODIUM 136 MEQ/L (136-147); UREA NITROGEN (BUN) 12 mg/dL (9-23)
[2016-07-17 07:52] LABS: ABS NEUTROPHIL COUNT 4.41; ANISOCYTOSIS 1+; EOSINOPHIL ABS CT 0.21; MICROCYTOSIS 1+; PLAT.SUFFICIENCY ADEQUATE; USER ID STC
[2016-07-17 08:11] VITALS: BP 128/57
[2016-07-17 11:30] VITALS: BP 119/53
[2016-07-17 15:51] VITALS: BP 129/50
[2016-07-17] MEDS ORDERED: XARELTO15 MG PO (16:03)
[2016-07-18 09:56] LABS: THROMBIN TIME+ 17 sec (13-19)
[2016-07-18 18:33] LABS: DRVVT Mixing Study Interp Not Indicated (()); PROTEIN C FUNCTIONAL ACTIVITY+ 163 % (70-180); PTT-LA 75 sec (<=40); PTT-LA Reflex Has been added (()); Protein S, Free 75 % normal (50-147); Thrombosis Consult Level Limited (()); dRVVT Screen 77 sec (<=45)
[2016-07-21 12:07] LABS: ANTITHROMBIN III ACTIVITY+ 60 % activi (80-120)
== END 2016-07-17 19:16 | DRG 377 ==
LOC: 4EAST 15:20
PROVIDERS: Hospitalist; Internal Medicine; Internal Medicine Hematology & Oncology; Physician Assistant
PROC: 02HV33Z Insertion of Infusion Device into Superior Vena Cava, Percutaneous Approach (ICD-10-PCS; principal; 2016-07-11)
PROC: 30233N1 Transfusion of Nonautologous Red Blood Cells into Peripheral Vein, Percutaneous Approach (ICD-10-PCS; principal; 2016-07-11)
DX: K92.2 Gastrointestinal hemorrhage, unspecified (principal); J18.9 Pneumonia, unspecified organism; N39.0 Urinary tract infection, site not specified; B96.5 Pseudomonas (aeruginosa) (mallei) (pseudomallei) as the cause of diseases classified elsewhere; E87.6 Hypokalemia; K21.9 Gastro-esophageal reflux disease without esophagitis; E78.5 Hyperlipidemia, unspecified; E83.51 Hypocalcemia; D64.9 Anemia, unspecified; J45.909 Unspecified asthma, uncomplicated; E03.9 Hypothyroidism, unspecified; I87.8 Other specified disorders of veins; E66.9 Obesity, unspecified; Z68.32 Body mass index [BMI] 32.0-32.9, adult; R33.9 Retention of urine, unspecified; Z86.718 Personal history of other venous thrombosis and embolism; I95.9 Hypotension, unspecified; S50.01XA Contusion of right elbow, initial encounter; S51.001A Unspecified open wound of right elbow, initial encounter; S31.809A Unspecified open wound of unspecified buttock, initial encounter
CPT/HCPCS: 71010; 80048; 81003; 81240 90; 82040; 82272; 83090 90; 83735; 85025; 85025 91; 85027; 85240 90; 85300 90; 85303 90; 85305 90; 85306 90; 85307 90; 85613 90; 85670 90; 85730 90; 86146 90; 86147 90; 86850; 86900; 86901; 86920; 87040; 87077; 87086; 87186; 87493; 87502; 94640 76; 94760; 97530 GO; 97530 GP; 99202; J0456; J0610; J0692; J1450; J2405; J3475; J7050; P9016

== ENCOUNTER 2016-09-12 10:59 | Observation (INO) | payer OTHER ==
[~2016-09-12] VITALS: Ht 149.9 cm; Wt 55.5 kg
[~2016-09-12 10:59] MED LIST changes: +XARELTO15 MG PO
[2016-09-12 12:14] LABS: HEMATOCRIT 32.3 % (36.0-46.0); MCHC 33.4 G/DL (30.0-36.0); MCV 95.8 FL (83-99); MEAN PLAT.VOLUME 9.6 uM^3 (9.5-12.4); PLATELET COUNT 300 K/uL (156-360); RBC DIS.WIDTH-CV 18.3 % (11.8-14.6); RBC DIS.WIDTH-SD 64.2 % (39-53); RED BLOOD COUNT 3.37 M/uL (3.80-5.20); WHITE BLOOD COUNT 8.3 K/uL (4.1-10.2)
[2016-09-12 12:24] LABS: INTER. NORMALIZED RATIO 1.1; PROTHROMBIN TIME 11.3 (9.2-11.2); PTT 28.7 (25-32)
[2016-09-12 12:25] LABS: CHLORIDE 108 mEq/L (99-109); POTASSIUM 4.6 mEq/L (3.7-5.4); SODIUM 135 mEq/L (136-147)
[2016-09-12 12:27] LABS: GLUCOSE 89 mg/dL (70-99)
[2016-09-12 12:29] LABS: ANION GAP 8 MEQ/L (2-14)
[2016-09-12 12:31] LABS: GFR ESTIMATE (CALCULATED) > 59 mL/min/
[2016-09-12 12:32] LABS: UREA NITROGEN (BUN) 10 mg/dL (9-23)
[2016-09-12 12:35] LABS: TROP-I INTERPRETATION NEGATIVE; TROPONIN-I < 0.01 ng/mL (0.0-0.30)
[2016-09-12] MEDS ORDERED: ZOFRAN4 MG PO (13:57)
[2016-09-12] MEDS ORDERED: XARELTO20 MG PO (13:58)
[2016-09-12] MEDS ORDERED: POTASSIUM CHLO20 ME1 PO (14:01)
[2016-09-12] MEDS ORDERED: FLUTICASONE PRO16 GM BOTH NARES (14:01)
[2016-09-12] MEDS ORDERED: MIRTAZAPINE15 MG PO (14:02)
[2016-09-12] MEDS ORDERED: CALCIUM 600 +1 EA17 PO (14:03)
[2016-09-12] MEDS ORDERED: INDERAL10 MG PO (14:06)
[2016-09-12] MEDS ORDERED: FLOVENT DISKUS1 DIS1 IH (14:08)
[2016-09-12] MEDS ORDERED: ZYRTEC10 M2 PO (14:09)
[2016-09-12] MEDS ORDERED: ATIVAN0.5 MG PO (14:10)
[2016-09-12] MEDS ORDERED: OS-CAL 500+D T1 EAC1 PO (14:11)
[2016-09-12] MEDS ORDERED: CALCITONIN-SAL3.8 ML ALT NARES (14:12)
[2016-09-12 15:20] VITALS: BP 117/78
[2016-09-12 17:08] VITALS: BP 122/70
[2016-09-12 19:00] VITALS: BP 124/66
[2016-09-12 19:33] LABS: TROP-I INTERPRETATION NEGATIVE; TROPONIN-I < 0.01 ng/mL (0.0-0.30)
[2016-09-13] VITALS: BP 93/56
[2016-09-13 01:02] LABS: TROP-I INTERPRETATION NEGATIVE; TROPONIN-I < 0.01 ng/mL (0.0-0.30)
[2016-09-13 04:00] VITALS: BP 127/76
[2016-09-13 05:37] LABS: ALKALINE PHOSPHATASE 73 IU/L (3-129); ANION GAP 7 MEQ/L (2-14); CHLORIDE 114 MEQ/L (99-109); DIRECT BILIRUBIN 0.1 mg/dL (0.0-0.3); GFR ESTIMATE (CALCULATED) > 59 mL/min/; GLUCOSE 83 mg/dL (70-99); POTASSIUM 3.8 MEQ/L (3.7-5.4); SAMPLE HEMOLYSIS CHECK 0; SAMPLE ICTERIC CHECK 0; SAMPLE LIPEMIA CHECK 0; SODIUM 140 MEQ/L (136-147); TOTAL BILIRUBIN 0.4 MG/DL (0.0-1.0); UREA NITROGEN (BUN) 9 mg/dL (9-23)
[2016-09-13 06:18] LABS: EOSINOPHIL (%) 4.3 % (0-5); EOSINOPHIL COUNT 0.3 K/uL (0-0.3); HEMATOCRIT 26.6 % (36.0-46.0); IMMATURE GRANULOCYTE (%) 0.6 % (0.0-0.7); INSTRUMENT ABS NEUTROPHIL CT 2.3 K/uL; LYMPHOCYTE COUNT 3.1 K/uL (1.0-2.8); MCH 30.6 PG (29.0-34.0); MCHC 31.2 G/DL (30.0-36.0); MCV 98.2 FL (83-99); MEAN PLAT.VOLUME 9.9 uM^3 (9.5-12.4); MONOCYTE (%) 11.9 % (3-12); MONOCYTE COUNT 0.8 K/uL (0-0.8); NEUTROPHIL (%) 35.3 % (45-76); NEUTROPHIL COUNT 2.3 K/uL (1.8-6.4); PLATELET COUNT 244 K/uL (156-360); RBC DIS.WIDTH-CV 18.5 % (11.8-14.6); RBC DIS.WIDTH-SD 67.1 % (39-53); RED BLOOD COUNT 2.71 M/uL (3.80-5.20); WHITE BLOOD COUNT 6.5 K/uL (4.1-10.2)
[2016-09-13 08:19] VITALS: BP 128/78
[2016-09-13 08:55] LABS: POINT-OF-CARE METER ID UU14162513
[2016-09-13 12:02] LABS: IRON 52 MCG/DL (35-150)
[2016-09-13 12:22] VITALS: BP 114/58
[2016-09-13 12:54] LABS: IMM.RETIC FRACTION 22.3 % (3-19); RETIC HGB EQUIVALENT 37.4 (28-36); RETICULOCYTE COUNT 2.5 % (0.5-1.8)
== END 2016-09-13 14:52 | disposition home or self-care (01) ==
LOC: EME 10:59 → EDOF 13:26 → 5WEST 13:26 → EDOF 13:26 → 5WEST 15:01
PROVIDERS: Emergency Medicine; Hospitalist
DX: R55 Syncope and collapse (principal); I95.9 Hypotension, unspecified; E46 Unspecified protein-calorie malnutrition; E87.8 Other disorders of electrolyte and fluid balance, not elsewhere classified; I10 Essential (primary) hypertension; E78.5 Hyperlipidemia, unspecified; K21.9 Gastro-esophageal reflux disease without esophagitis; D64.9 Anemia, unspecified; Z86.718 Personal history of other venous thrombosis and embolism; Z66 Do not resuscitate
CPT/HCPCS: 70551; 71020; 80048; 80076; 82272; 82533 91; 82607; 82746; 82948; 83540; 83880; 84443; 84466; 84484; 85025; 85027; 85045; 85610; 85730; 93005; 93880; 94640; 94640 76; 99202; 99281; 99285; G0378; G8978 GP CJ; G8979 GP CI; G8987 GO CJ; G8988 CI; J7030

== ENCOUNTER 2016-12-19 20:30 | Inpatient (IN) | payer OTHER ==
[~2016-12-19] VITALS: Ht 161.3 cm; Wt 125.4 kg
[~2016-12-19 20:30] MED LIST changes: +ATIVAN0.5 MG PO; +CALCITONIN-SAL3.8 ML ALT NARES; +CALCIUM 600 +1 EA17 PO; +FLOVENT DISKUS1 DIS1 IH; +FLUTICASONE PRO16 GM BOTH NARES; +INDERAL10 MG PO; +MIRTAZAPINE15 MG PO; +OS-CAL 500+D T1 EAC1 PO; +POTASSIUM CHLO20 ME1 PO; +XARELTO20 MG PO; +ZOFRAN4 MG PO; +ZYRTEC10 M2 PO
[2016-12-19 21:08] LABS: HEMATOCRIT 41.3 % (36.0-46.0); MCH 33.8 PG (29.0-34.0); MCHC 34.1 G/DL (30.0-36.0); MEAN PLAT.VOLUME 8.5 uM^3 (9.5-12.4); PLATELET COUNT 322 K/uL (156-360); RBC DIS.WIDTH-CV 11.9 % (11.8-14.6); RBC DIS.WIDTH-SD 43.5 % (39-53); RED BLOOD COUNT 4.17 M/uL (3.80-5.20)
[2016-12-19 21:17] LABS: CHLORIDE 105 mEq/L (99-109); POTASSIUM 4.2 mEq/L (3.7-5.4); SODIUM 138 mEq/L (136-147)
[2016-12-19 21:19] LABS: GLUCOSE 182 mg/dL (70-99)
[2016-12-19 21:21] LABS: ANION GAP 10 MEQ/L (2-14); TOTAL BILIRUBIN 0.7 mg/dL (0.0-1.0)
[2016-12-19 21:23] LABS: ALKALINE PHOSPHATASE 108 IU/L (3-129); GFR ESTIMATE (CALCULATED) 57 mL/min/
[2016-12-19 21:24] LABS: UREA NITROGEN (BUN) 35 mg/dL (9-23)
[2016-12-19 21:25] LABS: DIRECT BILIRUBIN 0.2 mg/dL (0.0-0.3)
[2016-12-19 21:27] LABS: LIPASE 18 U/L (1.0-51.0)
[2016-12-19] MEDS ORDERED: FLINTSTONES WIT18 MG PO (22:20)
[2016-12-19] MEDS ORDERED: CORTEF5 M1 PO ×2 (22:20→22:21)
[2016-12-19] MEDS ORDERED: XANAX0.25 MG PO (22:21)
[2016-12-19 22:22] LABS: BASOPHIL COUNT 0.1 K/uL (0-0.1); EOSINOPHIL (%) 0.4 % (0-5); EOSINOPHIL COUNT 0.1 K/uL (0-0.3); IMMATURE GRANULOCYTE (%) 0.5 % (0.0-0.7); IMMATURE GRANULOCYTE COUNT 0.1 K/uL; INSTRUMENT ABS NEUTROPHIL CT 15.2 K/uL; LYMPHOCYTE COUNT 2.5 K/uL (1.0-2.8); MONOCYTE (%) 9.7 % (3-12); MONOCYTE COUNT 1.9 K/uL (0-0.8); NEUTROPHIL (%) 76.6 % (45-76); NEUTROPHIL COUNT 15.2 K/uL (1.8-6.4)
[2016-12-19 23:04] LABS: INTER. NORMALIZED RATIO 1.1; PROTHROMBIN TIME 12.3 SEC (10.2-12.9)
[2016-12-19 23:07] LABS: PTT 22.4 SEC (25-37)
[2016-12-20] VITALS (24 sets, daily range): BP systolic 65–116; BP diastolic 49–80
[2016-12-20 00:17] LABS: ADD MIUA? YES; BILIRUBIN NEGATIVE; BLOOD NEGATIVE; COLOR YELLOW ((YELLOW)); GLUCOSE (STRIP) NEGATIVE; KETONES 5; LEUKOCYTES MODERATE; NITRITE NEGATIVE; PROTEIN (STRIP) 30; SPECIFIC GRAVITY 1.025 (1.000-1.030); UROBILINOGEN 0.2 MG/DL (0.2-1.0)
[2016-12-20 01:00] LABS: BACTERIA 3+ /HPF; EPITHELIAL CELLS RARE /HPF; MUCUS TRACE /LPF; RED BLOOD CELLS 0-5 /HPF (0-5); UCUL ADDED? YES; WHITE BLOOD CELLS TNTC /HPF (0-5)
[2016-12-20 02:07] LABS: BASE EXCESS -6.4 mEq/L (-3 to +3); BICARBONATE 16.7 mEq/L (22-26); CARBOXY HGB 1.6 % (0-5); COMMENTS - BLOOD GASES C+; METHEMOGLOBIN 1.3 % (0-1.5); O2 FLOW 6 L/MIN; PCO2 27 mm Hg (35-45); PO2 41 mm Hg (80-100); SITE RR
[2016-12-20 02:08] LABS: DEVICE NC; TOTAL RESP RATE 36 resp/min
[2016-12-20 02:12] LABS: POINT-OF-CARE METER ID UU14208750
[2016-12-20 04:37] LABS: METH RESISTANT S AUREUS PCR POSITIVE (NEGATIVE)
[2016-12-20 04:39] LABS: PROBE CHECK PASS
[2016-12-20 05:27] LABS: HEMATOCRIT 38.6 % (36.0-46.0); MCH 34.7 PG (29.0-34.0); MCHC 33.4 G/DL (30.0-36.0); MCV 103.8 FL (83-99); MEAN PLAT.VOLUME 8.7 uM^3 (9.5-12.4); PLATELET COUNT 266 K/uL (156-360); RBC DIS.WIDTH-CV 12.1 % (11.8-14.6); RBC DIS.WIDTH-SD 45.9 % (39-53); RED BLOOD COUNT 3.72 M/uL (3.80-5.20); WHITE BLOOD COUNT 2.1 K/uL (4.1-10.2)
[2016-12-20 05:46] LABS: ALKALINE PHOSPHATASE 66 IU/L (3-129); ANION GAP 15 MEQ/L (2-14); CHLORIDE 109 MEQ/L (99-109); GFR ESTIMATE (CALCULATED) 42 mL/min/; MAGNESIUM 1.5 mg/dl (1.3-2.7); POTASSIUM 3.9 MEQ/L (3.7-5.4); SAMPLE HEMOLYSIS CHECK 0; SAMPLE ICTERIC CHECK 0; SAMPLE LIPEMIA CHECK 0; SODIUM 144 MEQ/L (136-147); TOTAL BILIRUBIN 0.8 MG/DL (0.0-1.0); UREA NITROGEN (BUN) 36 mg/dL (9-23)
[2016-12-20 05:47] LABS: GLUCOSE 98 mg/dL (70-99)
[2016-12-20 05:58] LABS: POINT-OF-CARE METER ID UU14162636
[2016-12-20 06:58] LABS: Estimated Average Glucose 100 mg/dL (70-123); HEMOGLOBIN A1c (GLYCOHEMOGLOB) 5.1 % HGB (Below 5.7)
[2016-12-20 08:17] LABS: ADD MIUA? YES; BILIRUBIN NEGATIVE; BLOOD NEGATIVE; COLOR STRAW ((YELLOW)); GLUCOSE (STRIP) NEGATIVE; KETONES NEGATIVE; LEUKOCYTES MODERATE; NITRITE NEGATIVE; PROTEIN (STRIP) NEGATIVE; UROBILINOGEN 0.2 MG/DL (0.2-1.0)
[2016-12-20 08:31] LABS: BACTERIA RARE /HPF; EPITHELIAL CELLS RARE /HPF; HYALINE CASTS 0-5 /LPF; MUCUS TRACE /LPF; RED BLOOD CELLS 0-5 /HPF (0-5); UCUL ADDED? YES
[2016-12-20 08:55] LABS: MCH 35.1 PG (29.0-34.0); MCHC 33.9 G/DL (30.0-36.0); MCV 103.4 FL (83-99); MEAN PLAT.VOLUME 8.9 uM^3 (9.5-12.4); PLATELET COUNT 227 K/uL (156-360); RBC DIS.WIDTH-CV 12.3 % (11.8-14.6); RBC DIS.WIDTH-SD 46.5 % (39-53); RED BLOOD COUNT 3.48 M/uL (3.80-5.20); WHITE BLOOD COUNT 4.4 K/uL (4.1-10.2)
[2016-12-20 08:57] LABS: INTER. NORMALIZED RATIO 1.3; PROTHROMBIN TIME 14.2 SEC (10.2-12.9)
[2016-12-20 09:00] LABS: PTT 33.4 SEC (25-37)
[2016-12-20 09:09] LABS: ANION GAP 16 MEQ/L (2-14); CHLORIDE 110 MEQ/L (99-109); GFR ESTIMATE (CALCULATED) 46 mL/min/; GLUCOSE 133 mg/dL (70-99); POTASSIUM 3.9 MEQ/L (3.7-5.4); SAMPLE HEMOLYSIS CHECK 0; SAMPLE ICTERIC CHECK 0; SAMPLE LIPEMIA CHECK 0; SODIUM 144 MEQ/L (136-147); UREA NITROGEN (BUN) 32 mg/dL (9-23)
[2016-12-20 10:05] LABS: ABS NEUTROPHIL COUNT 3.6; ANISOCYTOSIS 1+; EOSINOPHIL ABS CT 0; INSTRUMENT ABS NEUTROPHIL CT 3.3 K/uL; MACROCYTES 2+; PLAT.SUFFICIENCY ADEQUATE
[2016-12-20 12:20] LABS: POINT-OF-CARE METER ID UU13113731
[2016-12-20 17:21] LABS: HEMATOCRIT 34.8 % (36.0-46.0); MCH 34.4 PG (29.0-34.0); MCV 104.2 FL (83-99); RBC DIS.WIDTH-CV 12.3 % (11.8-14.6); RBC DIS.WIDTH-SD 46.5 % (39-53); RED BLOOD COUNT 3.34 M/uL (3.80-5.20); WHITE BLOOD COUNT 9.6 K/uL (4.1-10.2)
[2016-12-20 17:40] LABS: ANION GAP 17 MEQ/L (2-14); CHLORIDE 110 MEQ/L (99-109); GFR ESTIMATE (CALCULATED) 46 mL/min/; POTASSIUM 3.7 MEQ/L (3.7-5.4); SAMPLE HEMOLYSIS CHECK 0; SAMPLE ICTERIC CHECK 0; SAMPLE LIPEMIA CHECK 0; SODIUM 145 MEQ/L (136-147); UREA NITROGEN (BUN) 32 mg/dL (9-23)
[2016-12-20 17:42] LABS: GLUCOSE 208 mg/dL (70-99)
[2016-12-20 17:52] LABS: ABS NEUTROPHIL COUNT 7.5; ATYPICAL LYMPHOCYTE 0.9 %; BAND NEUTROPHILS 45.2 % (0-8.0); EOSINOPHIL ABS CT 0; INSTRUMENT ABS NEUTROPHIL CT 8.6 K/uL; LYMPHOCYTES 4.4 % (15.0-45.0); METAMYELOCYTES 9.6 %; MYELOCYTES 2.6 %; PLAT.SUFFICIENCY ADEQUATE; PLATELET CLUMPS PRESENT - PLATELET COUNT APPEARS ADQ.
[2016-12-20 18:04] LABS: PLATELET COUNT UNABLE TO REPORT K/uL (156-360)
[2016-12-20 18:14] LABS: POINT-OF-CARE METER ID UU13113731
[2016-12-21] VITALS (20 sets, daily range): BP systolic 83–137; BP diastolic 50–79
[2016-12-21 00:21] LABS: POINT-OF-CARE METER ID UU13113731; POINT-OF-CARE USER ID RADDRS44
[2016-12-21 06:08] LABS: POINT-OF-CARE METER ID UU13113748
[2016-12-21 07:30] LABS: HEMATOCRIT 31.5 % (36.0-46.0); MCH 34.8 PG (29.0-34.0); MCHC 33.7 G/DL (30.0-36.0); MCV 103.3 FL (83-99); MEAN PLAT.VOLUME 9.2 uM^3 (9.5-12.4); RBC DIS.WIDTH-CV 12.2 % (11.8-14.6); RBC DIS.WIDTH-SD 46.1 % (39-53); RED BLOOD COUNT 3.05 M/uL (3.80-5.20); WHITE BLOOD COUNT 6.9 K/uL (4.1-10.2)
[2016-12-21 07:34] LABS: PLATELET COUNT 200 K/uL (156-360)
[2016-12-21 07:41] LABS: ANION GAP 12 MEQ/L (2-14); CHLORIDE 117 MEQ/L (99-109); GFR ESTIMATE (CALCULATED) > 59 mL/min/; POTASSIUM 3.4 MEQ/L (3.7-5.4); SAMPLE HEMOLYSIS CHECK 0; SAMPLE ICTERIC CHECK 0; SAMPLE LIPEMIA CHECK 0; SODIUM 145 MEQ/L (136-147); UREA NITROGEN (BUN) 32 mg/dL (9-23)
[2016-12-21 07:45] LABS: GLUCOSE 118 mg/dL (70-99)
[2016-12-21 07:46] LABS: ABS NEUTROPHIL COUNT 5.8; BURR CELLS 1+; EOSINOPHIL ABS CT 0; INSTRUMENT ABS NEUTROPHIL CT 5.2 K/uL; LYMPHOCYTES 14.8 % (15.0-45.0); METAMYELOCYTES 0.9 %; PLAT.SUFFICIENCY ADEQUATE; POIKILOCYTOSIS 2+; SPHEROCYTES 1+
[2016-12-21 07:51] LABS: BAND NEUTROPHILS 22.6 % (0-8.0); SEG.NEUTROPHILS 60.8 % (46.0-76.0)
[2016-12-21 12:06] LABS: POINT-OF-CARE METER ID UU13113748
[2016-12-21 17:20] LABS: POINT-OF-CARE METER ID UU14174217
[2016-12-22] VITALS (20 sets, daily range): BP systolic 97–136; BP diastolic 52–89
[2016-12-22 00:32] LABS: POINT-OF-CARE METER ID UU14208751; POINT-OF-CARE USER ID RADDRS44
[2016-12-22 05:59] LABS: HEMATOCRIT 29.6 % (36.0-46.0); MCH 34.3 PG (29.0-34.0); MCHC 33.1 G/DL (30.0-36.0); MCV 103.5 FL (83-99); RBC DIS.WIDTH-SD 45.1 % (39-53); RED BLOOD COUNT 2.86 M/uL (3.80-5.20); WHITE BLOOD COUNT 6.7 K/uL (4.1-10.2)
[2016-12-22 06:27] LABS: ALKALINE PHOSPHATASE 48 IU/L (3-129); DIRECT BILIRUBIN 0.1 mg/dL (0.0-0.3); PREALBUMIN 10.1 mg/dL (10-40); TRIGLYCERIDES 154 MG/DL (Normal: <150)
[2016-12-22 06:28] LABS: TOTAL BILIRUBIN 0.4 MG/DL (0.0-1.0)
[2016-12-22 07:04] LABS: ATYPICAL LYMPHOCYTE 0.9 %; BAND NEUTROPHILS 5.3 % (0-8.0); BASOPHILS 0.9 %; EOSINOPHIL ABS CT 0; INSTRUMENT ABS NEUTROPHIL CT 5.1 K/uL; LYMPHOCYTES 16.8 % (15.0-45.0); MEAN PLAT.VOLUME 9.2 uM^3 (9.5-12.4); MYELOCYTES 1.8 %; PLAT.SUFFICIENCY ADEQUATE; PLATELET COUNT 212 K/uL (156-360); SEG.NEUTROPHILS 69.9 % (46.0-76.0); SMUDGE CELLS 3.5
[2016-12-22 07:54] LABS: ANION GAP 16 MEQ/L (2-14); CHLORIDE 118 MEQ/L (99-109); GFR ESTIMATE (CALCULATED) > 59 mL/min/; GLUCOSE 70 mg/dL (70-99); SAMPLE HEMOLYSIS CHECK 0; SAMPLE ICTERIC CHECK 0; SAMPLE LIPEMIA CHECK 0; SODIUM 149 MEQ/L (136-147); UREA NITROGEN (BUN) 28 mg/dL (9-23)
[2016-12-22 10:47] LABS: POINT-OF-CARE METER ID UU14162636
[2016-12-22 11:56] LABS: POINT-OF-CARE METER ID UU14162636
[2016-12-22 17:42] LABS: POINT-OF-CARE METER ID UU14162636
[2016-12-22 18:12] LABS: POINT-OF-CARE METER ID UU14162636
[2016-12-23] VITALS (21 sets, daily range): BP systolic 92–145; BP diastolic 53–94
[2016-12-23 00:16] LABS: POINT-OF-CARE METER ID UU14162636; POINT-OF-CARE USER ID LABHNS84
[2016-12-23 05:11] LABS: HEMATOCRIT 30.8 % (36.0-46.0); MCH 34.2 PG (29.0-34.0); MCHC 33.4 G/DL (30.0-36.0); MCV 102.3 FL (83-99); MEAN PLAT.VOLUME 9.2 uM^3 (9.5-12.4); PLATELET COUNT 219 K/uL (156-360); RBC DIS.WIDTH-CV 12.2 % (11.8-14.6); RBC DIS.WIDTH-SD 45.7 % (39-53); RED BLOOD COUNT 3.01 M/uL (3.80-5.20); WHITE BLOOD COUNT 7.3 K/uL (4.1-10.2)
[2016-12-23 05:54] LABS: EOSINOPHIL (%) 0.1 % (0-5); HEMATOLOGY COMMENT 1 SN; IMMATURE GRANULOCYTE COUNT 0.1 K/uL; INSTRUMENT ABS NEUTROPHIL CT 5.9 K/uL; MONOCYTE (%) 5.1 % (3-12); MONOCYTE COUNT 0.4 K/uL (0-0.8); NEUTROPHIL (%) 80.8 % (45-76); NEUTROPHIL COUNT 5.9 K/uL (1.8-6.4)
[2016-12-23 06:15] LABS: ANION GAP 10 MEQ/L (2-14); CHLORIDE 119 MEQ/L (99-109); GFR ESTIMATE (CALCULATED) > 59 mL/min/; GLUCOSE 138 mg/dL (70-99); MAGNESIUM 1.7 mg/dl (1.3-2.7); POTASSIUM 3.7 MEQ/L (3.7-5.4); SAMPLE HEMOLYSIS CHECK 0; SAMPLE ICTERIC CHECK 0; SAMPLE LIPEMIA CHECK 0; SODIUM 151 MEQ/L (136-147); UREA NITROGEN (BUN) 26 mg/dL (9-23)
[2016-12-23 08:46] LABS: TROP-I INTERPRETATION NEGATIVE; TROPONIN-I 0.03 ng/mL (0.0-0.30)
[2016-12-23 12:40] LABS: HEMATOCRIT 31.3 % (36.0-46.0); MCH 33.2 PG (29.0-34.0); MCHC 33.2 G/DL (30.0-36.0); PLATELET COUNT 228 K/uL (156-360); RBC DIS.WIDTH-CV 12.1 % (11.8-14.6); RED BLOOD COUNT 3.13 M/uL (3.80-5.20); WHITE BLOOD COUNT 6.7 K/uL (4.1-10.2)
[2016-12-23 12:44] LABS: POINT-OF-CARE METER ID UU14208751; POINT-OF-CARE USER ID 612031313
[2016-12-23 12:46] LABS: INTER. NORMALIZED RATIO 1.2; PROTHROMBIN TIME 13.2 SEC (10.2-12.9)
[2016-12-23 13:03] LABS: EOSINOPHIL (%) 0.2 % (0-5); IMMATURE GRANULOCYTE (%) 1.7 % (0.0-0.7); IMMATURE GRANULOCYTE COUNT 0.1 K/uL; INSTRUMENT ABS NEUTROPHIL CT 5.2 K/uL; MONOCYTE (%) 4.7 % (3-12); MONOCYTE COUNT 0.3 K/uL (0-0.8); NEUTROPHIL COUNT 5.2 K/uL (1.8-6.4)
[2016-12-23 15:27] LABS: ANION GAP 15 MEQ/L (2-14); CHLORIDE 116 MEQ/L (99-109); GFR ESTIMATE (CALCULATED) > 59 mL/min/; GLUCOSE 158 mg/dL (70-99); POTASSIUM 3.8 MEQ/L (3.7-5.4); SAMPLE HEMOLYSIS CHECK 0; SAMPLE ICTERIC CHECK 0; SAMPLE LIPEMIA CHECK 0; SODIUM 151 MEQ/L (136-147); UREA NITROGEN (BUN) 31 mg/dL (9-23)
[2016-12-23 18:15] LABS: BASE EXCESS -5.5 mEq/L (-3 to +3); CARBOXY HGB 1.1 % (0-5); METHEMOGLOBIN 1.4 % (0-1.5)
[2016-12-23 18:16] LABS: BICARBONATE 21.1 mEq/L (22-26); COMMENTS - BLOOD GASES C+; DEVICE VENTILATOR; FI02 100 %; MECHANICAL RATE 10 resp/min; MODE AC-10; PCO2 45 mm Hg (35-45); PO2 267 mm Hg (80-100); SITE A LINE; TOTAL RESP RATE 14 resp/min; pH 7.28 (7.35-7.45)
[2016-12-23 18:17] LABS: PEEP 15 CM/H20; TIDAL VOLUME 550 ML
[2016-12-23 18:21] LABS: POINT-OF-CARE METER ID UU14208751; POINT-OF-CARE USER ID LABHNS84
[2016-12-23 21:10] LABS: BASE EXCESS -4.2 mEq/L (-3 to +3); BICARBONATE 19.8 mEq/L (22-26); METHEMOGLOBIN 1.1 % (0-1.5)
[2016-12-23 21:11] LABS: COMMENTS - BLOOD GASES C+A+; DEVICE VENTILATOR; FI02 40 %; MECHANICAL RATE 10 resp/min; MODE A/C; PCO2 32 mm Hg (35-45); PEEP 15 CM/H20; PO2 111 mm Hg (80-100); SITE LR ALINE; TIDAL VOLUME 550 ML; TOTAL RESP RATE 16 resp/min
[2016-12-24] VITALS (19 sets, daily range): BP systolic 86–116; BP diastolic 45–65
[2016-12-24 00:10] LABS: POINT-OF-CARE METER ID UU14208751; POINT-OF-CARE USER ID LABHNS84
[2016-12-24 05:26] LABS: HEMATOCRIT 27.5 % (36.0-46.0); MCH 34.8 PG (29.0-34.0); MCHC 34.2 G/DL (30.0-36.0); MCV 101.9 FL (83-99); RBC DIS.WIDTH-CV 12.5 % (11.8-14.6); RBC DIS.WIDTH-SD 46.4 % (39-53); WHITE BLOOD COUNT 6.8 K/uL (4.1-10.2)
[2016-12-24 05:30] LABS: BASE EXCESS -3.7 mEq/L (-3 to +3); BICARBONATE 19.9 mEq/L (22-26); COMMENTS - BLOOD GASES C+A+; DEVICE VENT; FI02 40 %; MECHANICAL RATE 10 resp/min; METHEMOGLOBIN 1.3 % (0-1.5); MODE AC; PCO2 30 mm Hg (35-45); PEEP 10 CM/H20; PO2 79 mm Hg (80-100); SITE RR; TIDAL VOLUME 450 ML; TOTAL RESP RATE 27 resp/min; pH 7.43 (7.35-7.45)
[2016-12-24 05:55] LABS: ABS NEUTROPHIL COUNT 4.9; BAND NEUTROPHILS 2.7 % (0-8.0); EOSINOPHIL ABS CT 0.1; EOSINOPHILS 0.9 % (0-5.0); INSTRUMENT ABS NEUTROPHIL CT 4.5 K/uL; LYMPHOCYTES 20.3 % (15.0-45.0); MEAN PLAT.VOLUME 9.4 uM^3 (9.5-12.4); METAMYELOCYTES 1.8 %; PLAT.SUFFICIENCY ADEQUATE; PLATELET COUNT 208 K/uL (156-360); POIKILOCYTOSIS 1+; POLYCHROMASIA 1+; SEG.NEUTROPHILS 69.9 % (46.0-76.0); SPHEROCYTES 1+
[2016-12-24 07:17] LABS: ALKALINE PHOSPHATASE 40 IU/L (3-129); ANION GAP 13 MEQ/L (2-14); CHLORIDE 115 MEQ/L (99-109); GFR ESTIMATE (CALCULATED) 46 mL/min/; GLUCOSE 152 mg/dL (70-99); POTASSIUM 3.5 MEQ/L (3.7-5.4); SAMPLE HEMOLYSIS CHECK 0; SAMPLE ICTERIC CHECK 0; SAMPLE LIPEMIA CHECK 0; SODIUM 146 MEQ/L (136-147); UREA NITROGEN (BUN) 40 mg/dL (9-23)
[2016-12-24 07:19] LABS: TOTAL BILIRUBIN 0.2 MG/DL (0.0-1.0)
[2016-12-24 08:23] LABS: ALKALINE PHOSPHATASE 42 IU/L (3-129); ANION GAP 13 MEQ/L (2-14); CHLORIDE 114 MEQ/L (99-109); GFR ESTIMATE (CALCULATED) 46 mL/min/; GLUCOSE 154 mg/dL (70-99); MAGNESIUM 1.8 mg/dl (1.3-2.7); POTASSIUM 3.3 MEQ/L (3.7-5.4); PREALBUMIN < 3.0 mg/dL (10-40); SAMPLE HEMOLYSIS CHECK 0; SAMPLE ICTERIC CHECK 0; SAMPLE LIPEMIA CHECK 0; SODIUM 145 MEQ/L (136-147); TOTAL BILIRUBIN 0.2 MG/DL (0.0-1.0); TRIGLYCERIDES 154 MG/DL (Normal: <150); UREA NITROGEN (BUN) 40 mg/dL (9-23)
[2016-12-24 09:05] LABS: INTER. NORMALIZED RATIO 1.1; PROTHROMBIN TIME 12.6 SEC (10.2-12.9)
[2016-12-24 09:08] LABS: PTT 28.3 SEC (25-37)
[2016-12-24 13:12] LABS: POINT-OF-CARE METER ID UU14208751
[2016-12-24 16:42] LABS: ANION GAP 10 MEQ/L (2-14); CHLORIDE 114 MEQ/L (99-109); GFR ESTIMATE (CALCULATED) 46 mL/min/; SAMPLE HEMOLYSIS CHECK 0; SAMPLE ICTERIC CHECK 0; SAMPLE LIPEMIA CHECK 0; SODIUM 145 MEQ/L (136-147); UREA NITROGEN (BUN) 36 mg/dL (9-23)
[2016-12-24 17:04] LABS: GLUCOSE 108 mg/dL (70-99); POTASSIUM 4.3 MEQ/L (3.7-5.4)
[2016-12-24 17:35] LABS: POINT-OF-CARE METER ID UU14208751
[2016-12-24 23:21] LABS: POINT-OF-CARE METER ID UU13113731
[2016-12-25] VITALS (22 sets, daily range): BP systolic 82–107; BP diastolic 46–87
[2016-12-25 05:25] LABS: HEMATOCRIT 26.3 % (36.0-46.0); MCH 33.1 PG (29.0-34.0); MCHC 31.9 G/DL (30.0-36.0); MCV 103.5 FL (83-99); MEAN PLAT.VOLUME 9.6 uM^3 (9.5-12.4); PLATELET COUNT 193 K/uL (156-360); RBC DIS.WIDTH-CV 12.4 % (11.8-14.6); RBC DIS.WIDTH-SD 46.8 % (39-53); RED BLOOD COUNT 2.54 M/uL (3.80-5.20); WHITE BLOOD COUNT 11.1 K/uL (4.1-10.2)
[2016-12-25 05:52] LABS: ANION GAP 8 MEQ/L (2-14); CHLORIDE 114 MEQ/L (99-109); GFR ESTIMATE (CALCULATED) 46 mL/min/; GLUCOSE 137 mg/dL (70-99); SAMPLE HEMOLYSIS CHECK 0; SAMPLE ICTERIC CHECK 0; SAMPLE LIPEMIA CHECK 0; SODIUM 144 MEQ/L (136-147); UREA NITROGEN (BUN) 35 mg/dL (9-23)
[2016-12-25 05:53] LABS: MAGNESIUM 2.3 mg/dl (1.3-2.7); POTASSIUM 5.6 MEQ/L (3.7-5.4)
[2016-12-25 08:14] LABS: ABS NEUTROPHIL COUNT 8.8; ANISOCYTOSIS 1+; EOSINOPHIL ABS CT 0.2; INSTRUMENT ABS NEUTROPHIL CT 7.8 K/uL; MACROCYTES 1+; PLAT.SUFFICIENCY ADEQUATE
[2016-12-25 11:25] LABS: POINT-OF-CARE METER ID UU14208751
[2016-12-25 17:56] LABS: POINT-OF-CARE METER ID UU14208751
[2016-12-26] VITALS (23 sets, daily range): BP systolic 81–149; BP diastolic 47–92
[2016-12-26] LABS: POINT-OF-CARE METER ID UU14208751
[2016-12-26 05:47] LABS: MCH 33.9 PG (29.0-34.0); MCV 102.7 FL (83-99); PLATELET COUNT 202 K/uL (156-360); RBC DIS.WIDTH-CV 12.1 % (11.8-14.6); RBC DIS.WIDTH-SD 45.8 % (39-53); RED BLOOD COUNT 2.24 M/uL (3.80-5.20); WHITE BLOOD COUNT 11.5 K/uL (4.1-10.2)
[2016-12-26 05:52] LABS: POINT-OF-CARE METER ID UU13113698
[2016-12-26 06:12] LABS: ANION GAP 8 MEQ/L (2-14); CHLORIDE 111 MEQ/L (99-109); GFR ESTIMATE (CALCULATED) 57 mL/min/; GLUCOSE 147 mg/dL (70-99); MAGNESIUM 2.2 mg/dl (1.3-2.7); SAMPLE HEMOLYSIS CHECK 0; SAMPLE ICTERIC CHECK 0; SAMPLE LIPEMIA CHECK 0; SODIUM 140 MEQ/L (136-147); UREA NITROGEN (BUN) 26 mg/dL (9-23)
[2016-12-26 06:13] LABS: POTASSIUM 3.7 MEQ/L (3.7-5.4)
[2016-12-26 08:11] LABS: BASE EXCESS -4.1 mEq/L (-3 to +3); BICARBONATE 19.5 mEq/L (22-26); CARBOXY HGB 1.5 % (0-5); METHEMOGLOBIN 1.2 % (0-1.5); PCO2 30 mm Hg (35-45); pH 7.42 (7.35-7.45)
[2016-12-26 08:12] LABS: PO2 48 mm Hg (80-100)
[2016-12-26 08:13] LABS: DEVICE VENTI; FI02 50 %; O2 FLOW 12 L/MIN; SITE RR; TOTAL RESP RATE 30 resp/min
[2016-12-26 12:37] LABS: POINT-OF-CARE METER ID UU13113731
[2016-12-26 17:48] LABS: BASE EXCESS -2.2 mEq/L (-3 to +3); BICARBONATE 20.6 mEq/L (22-26); CARBOXY HGB 1.8 % (0-5); COMMENTS - BLOOD GASES +C; METHEMOGLOBIN 1.6 % (0-1.5); PCO2 27 mm Hg (35-45); PO2 79 mm Hg (80-100); SITE RR +A; pH 7.49 (7.35-7.45)
[2016-12-26 17:49] LABS: DEVICE PB840; FI02 75 %; MODE NIV; PEEP 5 CM/H20; PRES. SUPPORT 10 CM/H2O; TOTAL RESP RATE 45 resp/min
[2016-12-26 17:52] LABS: POINT-OF-CARE METER ID UU14208751
[2016-12-26 23:33] LABS: POINT-OF-CARE METER ID UU14208751
[2016-12-27] VITALS (27 sets, daily range): BP systolic 89–145; BP diastolic 46–97
[2016-12-27 05:35] LABS: POINT-OF-CARE METER ID UU14174217
[2016-12-27 06:15] LABS: ANION GAP 13 MEQ/L (2-14); CHLORIDE 112 MEQ/L (99-109); GFR ESTIMATE (CALCULATED) 57 mL/min/; GLUCOSE 175 mg/dL (70-99); MAGNESIUM 1.9 mg/dl (1.3-2.7); POTASSIUM 2.4 MEQ/L (3.7-5.4); SAMPLE HEMOLYSIS CHECK 0; SAMPLE ICTERIC CHECK 0; SAMPLE LIPEMIA CHECK 0; SODIUM 147 MEQ/L (136-147); UREA NITROGEN (BUN) 27 mg/dL (9-23)
[2016-12-27 12:14] LABS: BASE EXCESS -0.6 mEq/L (-3 to +3); BICARBONATE 22.8 mEq/L (22-26); CARBOXY HGB 1.6 % (0-5); METHEMOGLOBIN 1.5 % (0-1.5); PCO2 32 mm Hg (35-45); PO2 74 mm Hg (80-100); pH 7.46 (7.35-7.45)
[2016-12-27 12:15] LABS: COMMENTS - BLOOD GASES NEG A+C+; DEVICE VENT; FI02 70 %; INSPIRATION TIME 0.8 seconds; MECHANICAL RATE 20 resp/min; MODE ACVC+; PEEP 10 CM/H20; SITE LR; TIDAL VOLUME 400 ML; TOTAL RESP RATE 28 resp/min
[2016-12-27 12:25] LABS: POINT-OF-CARE METER ID UU14174217
[2016-12-27 12:36] LABS: HEMATOCRIT 26.7 % (36.0-46.0); MCH 32.3 PG (29.0-34.0); MCHC 34.1 G/DL (30.0-36.0); MEAN PLAT.VOLUME 9.7 uM^3 (9.5-12.4); NRBC (%) 0.2 /100 WBC (0-0); PLATELET COUNT 257 K/uL (156-360); RBC DIS.WIDTH-CV 14.9 % (11.8-14.6); RBC DIS.WIDTH-SD 52.3 % (39-53); WHITE BLOOD COUNT 13.6 K/uL (4.1-10.2)
[2016-12-27 12:37] LABS: MCV 94.7 FL (83-99); RED BLOOD COUNT 2.82 M/uL (3.80-5.20)
[2016-12-27 12:41] LABS: ANION GAP 12 MEQ/L (2-14); CHLORIDE 115 MEQ/L (99-109); GFR ESTIMATE (CALCULATED) > 59 mL/min/; GLUCOSE 166 mg/dL (70-99); POTASSIUM 3.2 MEQ/L (3.7-5.4); SAMPLE HEMOLYSIS CHECK 0; SAMPLE ICTERIC CHECK 0; SAMPLE LIPEMIA CHECK 0; SODIUM 148 MEQ/L (136-147); UREA NITROGEN (BUN) 30 mg/dL (9-23)
[2016-12-27 18:14] LABS: POINT-OF-CARE METER ID UU14174217
[2016-12-28] VITALS (24 sets, daily range): BP systolic 103–135; BP diastolic 46–87
[2016-12-28 00:57] LABS: POINT-OF-CARE METER ID UU14162636
[2016-12-28 06:08] LABS: MEAN PLAT.VOLUME 10.1 uM^3 (9.5-12.4); NRBC (%) 0.1 /100 WBC (0-0); PLATELET COUNT 312 K/uL (156-360); RBC DIS.WIDTH-CV 14.9 % (11.8-14.6); RBC DIS.WIDTH-SD 52.4 % (39-53); RED BLOOD COUNT 2.66 M/uL (3.80-5.20); WHITE BLOOD COUNT 15.7 K/uL (4.1-10.2)
[2016-12-28 06:26] LABS: ANION GAP 12 MEQ/L (2-14); CHLORIDE 114 MEQ/L (99-109); GFR ESTIMATE (CALCULATED) > 59 mL/min/; GLUCOSE 152 mg/dL (70-99); MAGNESIUM 2.1 mg/dl (1.3-2.7); POTASSIUM 3.6 MEQ/L (3.7-5.4); SAMPLE HEMOLYSIS CHECK 0; SAMPLE ICTERIC CHECK 0; SAMPLE LIPEMIA CHECK 0; SODIUM 148 MEQ/L (136-147); UREA NITROGEN (BUN) 34 mg/dL (9-23)
[2016-12-28 11:52] LABS: POINT-OF-CARE METER ID UU14162636
[2016-12-28 17:38] LABS: POINT-OF-CARE METER ID UU14162636
[2016-12-28 23:29] LABS: POINT-OF-CARE METER ID UU13113731
[2016-12-29] VITALS (24 sets, daily range): BP systolic 0–155; BP diastolic 0–87
[2016-12-29 05:22] LABS: POINT-OF-CARE METER ID UU13113731
[2016-12-29 06:38] LABS: ANION GAP 7 MEQ/L (2-14); CHLORIDE 112 MEQ/L (99-109); GFR ESTIMATE (CALCULATED) > 59 mL/min/; GLUCOSE 151 mg/dL (70-99); MAGNESIUM 2.1 mg/dl (1.3-2.7); POTASSIUM 3.4 MEQ/L (3.7-5.4); SAMPLE HEMOLYSIS CHECK 0; SAMPLE ICTERIC CHECK 0; SAMPLE LIPEMIA CHECK 0; SODIUM 143 MEQ/L (136-147); UREA NITROGEN (BUN) 35 mg/dL (9-23)
[2016-12-29 12:16] LABS: POINT-OF-CARE METER ID UU13113748
[2016-12-29 17:29] LABS: POINT-OF-CARE METER ID UU13113748
[2016-12-30] VITALS (31 sets, daily range): BP systolic 94–133; BP diastolic 52–74
[2016-12-30 01:16] LABS: POINT-OF-CARE METER ID UU13113748; POINT-OF-CARE USER ID 606021424
[2016-12-30 05:50] LABS: POINT-OF-CARE METER ID UU13113748
[2016-12-30 06:02] LABS: HEMATOCRIT 21.7 % (36.0-46.0); MCV 94.3 FL (83-99); PLATELET COUNT 356 K/uL (156-360); RBC DIS.WIDTH-CV 14.5 % (11.8-14.6); RBC DIS.WIDTH-SD 49.5 % (39-53); WHITE BLOOD COUNT 13.3 K/uL (4.1-10.2)
[2016-12-30 06:37] LABS: ANION GAP 7 MEQ/L (2-14); CHLORIDE 111 MEQ/L (99-109); GFR ESTIMATE (CALCULATED) > 59 mL/min/; GLUCOSE 143 mg/dL (70-99); MAGNESIUM 1.9 mg/dl (1.3-2.7); POTASSIUM 3.2 MEQ/L (3.7-5.4); SAMPLE HEMOLYSIS CHECK 0; SAMPLE ICTERIC CHECK 0; SAMPLE LIPEMIA CHECK 0; SODIUM 144 MEQ/L (136-147); UREA NITROGEN (BUN) 34 mg/dL (9-23)
[2016-12-30 07:16] LABS: ABS NEUTROPHIL COUNT 11.9; ATYPICAL LYMPHOCYTE 1.7 %; BAND NEUTROPHILS 4.3 % (0-8.0); EOSINOPHIL ABS CT 0.1; EOSINOPHILS 0.9 % (0-5.0); INSTRUMENT ABS NEUTROPHIL CT 9.5 K/uL; LYMPHOCYTES 3.5 % (15.0-45.0); METAMYELOCYTES 0.9 %; PLAT.SUFFICIENCY INCREASED; POIKILOCYTOSIS 1+; SEG.NEUTROPHILS 85.2 % (46.0-76.0)
[2016-12-30 11:47] LABS: POINT-OF-CARE METER ID UU13113748
[2016-12-30 18:34] LABS: POINT-OF-CARE METER ID UU14174217
[2016-12-30 22:11] LABS: HEMATOCRIT 27.2 % (36.0-46.0); MCV 90.7 FL (83-99)
[2016-12-31] VITALS (24 sets, daily range): BP systolic 68–128; BP diastolic 38–76
[2016-12-31 06:05] LABS: HEMATOCRIT 25.6 % (36.0-46.0); MCH 30.6 PG (29.0-34.0); MCV 90.1 FL (83-99); NRBC (%) 0.4 /100 WBC (0-0); PLATELET COUNT 376 K/uL (156-360); RBC DIS.WIDTH-CV 16.1 % (11.8-14.6); RBC DIS.WIDTH-SD 53.3 % (39-53)
[2016-12-31 06:21] LABS: RED BLOOD COUNT 2.84 M/uL (3.80-5.20)
[2016-12-31 06:35] LABS: POINT-OF-CARE METER ID UU14162636; POINT-OF-CARE USER ID RADDRS44
[2016-12-31 07:00] LABS: ABS NEUTROPHIL COUNT 13.7; ANISOCYTOSIS 1+; BAND NEUTROPHILS 1.8 % (0-8.0); EOSINOPHIL ABS CT 0.3; EOSINOPHILS 1.7 % (0-5.0); INSTRUMENT ABS NEUTROPHIL CT 11.1 K/uL; LYMPHOCYTES 6.2 % (15.0-45.0); METAMYELOCYTES 1.8 %; NUCLEATED RBC'S 2.7; PLAT.SUFFICIENCY ADEQUATE; SEG.NEUTROPHILS 84.1 % (46.0-76.0)
[2016-12-31 07:04] LABS: ALKALINE PHOSPHATASE 60 IU/L (3-129); ANION GAP 8 MEQ/L (2-14); CHLORIDE 109 MEQ/L (99-109); DIRECT BILIRUBIN 0.2 mg/dL (0.0-0.3); GFR ESTIMATE (CALCULATED) > 59 mL/min/; GLUCOSE 151 mg/dL (70-99); MAGNESIUM 1.8 mg/dl (1.3-2.7); POTASSIUM 3.5 MEQ/L (3.7-5.4); PREALBUMIN 15.9 mg/dL (10-40); SAMPLE HEMOLYSIS CHECK 0; SAMPLE ICTERIC CHECK 0; SAMPLE LIPEMIA CHECK 0; SODIUM 141 MEQ/L (136-147); TOTAL BILIRUBIN 0.4 MG/DL (0.0-1.0); TRIGLYCERIDES 176 MG/DL (Normal: <150); UREA NITROGEN (BUN) 37 mg/dL (9-23)
[2016-12-31 12:06] LABS: POINT-OF-CARE METER ID UU14162636
[2016-12-31 12:30] LABS: POC NON-PRINT COM 1 ND
[2016-12-31 15:54] LABS: HEMATOCRIT 28.2 % (36.0-46.0); MCV 92.5 FL (83-99)
[2016-12-31 16:32] LABS: INTER. NORMALIZED RATIO 1.1; PROTHROMBIN TIME 12.6 SEC (10.2-12.9)
[2016-12-31 16:56] LABS: PTT 22.8 SEC (25-37)
[2016-12-31 17:33] LABS: POINT-OF-CARE METER ID UU14162636
[2016-12-31 21:03] LABS: HEMATOCRIT 27.6 % (36.0-46.0); MCV 91.4 FL (83-99)
[2017-01-01] VITALS (23 sets, daily range): BP systolic 86–142; BP diastolic 46–75
[2017-01-01 06:41] LABS: ANION GAP 6 MEQ/L (2-14); CHLORIDE 110 MEQ/L (99-109); GFR ESTIMATE (CALCULATED) > 59 mL/min/; GLUCOSE 145 mg/dL (70-99); SAMPLE HEMOLYSIS CHECK 0; SAMPLE ICTERIC CHECK 0; SAMPLE LIPEMIA CHECK 0; SODIUM 140 MEQ/L (136-147); UREA NITROGEN (BUN) 41 mg/dL (9-23)
[2017-01-01 06:46] LABS: POTASSIUM 4.7 MEQ/L (3.7-5.4)
[2017-01-01 13:38] LABS: POINT-OF-CARE METER ID UU13113731
[2017-01-01 23:59] LABS: POINT-OF-CARE METER ID UU13113731; POINT-OF-CARE USER ID 609231305
[2017-01-02] VITALS (15 sets, daily range): BP systolic 114–145; BP diastolic 56–91
[2017-01-02 05:23] LABS: CHLORIDE 109 mEq/L (99-109); POTASSIUM 4.7 mEq/L (3.7-5.4); SODIUM 139 mEq/L (136-147)
[2017-01-02 05:24] LABS: MAGNESIUM 2.2 mg/dL (1.3-2.7)
[2017-01-02 05:26] LABS: GLUCOSE 153 mg/dL (70-99)
[2017-01-02 05:27] LABS: ANION GAP 9 MEQ/L (2-14)
[2017-01-02 05:29] LABS: GFR ESTIMATE (CALCULATED) > 59 mL/min/
[2017-01-02 05:30] LABS: UREA NITROGEN (BUN) 34 mg/dL (9-23)
[2017-01-02 06:25] LABS: HEMATOCRIT 24.9 % (36.0-46.0); MCH 32.4 PG (29.0-34.0); MCHC 34.1 G/DL (30.0-36.0); MEAN PLAT.VOLUME 9.5 uM^3 (9.5-12.4); PLATELET COUNT 390 K/uL (156-360); RBC DIS.WIDTH-CV 15.4 % (11.8-14.6); RBC DIS.WIDTH-SD 53.5 % (39-53); RED BLOOD COUNT 2.62 M/uL (3.80-5.20); WHITE BLOOD COUNT 11.5 K/uL (4.1-10.2)
[2017-01-02 11:58] LABS: POINT-OF-CARE METER ID UU14174217
[2017-01-02 22:29] LABS: POINT-OF-CARE METER ID UU14162636
[2017-01-03] VITALS (20 sets, daily range): BP systolic 0–162; BP diastolic 0–104
[2017-01-03 05:49] LABS: MCH 31.2 PG (29.0-34.0); MCHC 33.6 G/DL (30.0-36.0); MCV 92.9 FL (83-99); MEAN PLAT.VOLUME 9.3 uM^3 (9.5-12.4); PLATELET COUNT 475 K/uL (156-360); RBC DIS.WIDTH-CV 14.6 % (11.8-14.6); RBC DIS.WIDTH-SD 49.6 % (39-53); RED BLOOD COUNT 2.69 M/uL (3.80-5.20)
[2017-01-03 06:31] LABS: ANION GAP 11 MEQ/L (2-14); CHLORIDE 105 MEQ/L (99-109); GFR ESTIMATE (CALCULATED) > 59 mL/min/; GLUCOSE 140 mg/dL (70-99); MAGNESIUM 1.8 mg/dl (1.3-2.7); SAMPLE HEMOLYSIS CHECK 0; SAMPLE ICTERIC CHECK 0; SAMPLE LIPEMIA CHECK 0; SODIUM 142 MEQ/L (136-147); UREA NITROGEN (BUN) 32 mg/dL (9-23)
[2017-01-03 06:58] LABS: ABS NEUTROPHIL COUNT 8.8; EOSINOPHIL ABS CT 0; INSTRUMENT ABS NEUTROPHIL CT 7.6 K/uL; METAMYELOCYTES 0.9 %; PLAT.SUFFICIENCY INCREASED; SEG.NEUTROPHILS 87.6 % (46.0-76.0)
[2017-01-03 09:07] LABS: POINT-OF-CARE METER ID UU14162636
[2017-01-03 21:19] LABS: POINT-OF-CARE METER ID UU14208751
[2017-01-04] VITALS (23 sets, daily range): BP systolic 0–156; BP diastolic 0–86
[2017-01-04 06:13] LABS: HEMATOCRIT 25.8 % (36.0-46.0); MCH 31.4 PG (29.0-34.0); MCHC 33.7 G/DL (30.0-36.0); MCV 93.1 FL (83-99); NRBC (%) 0.2 /100 WBC (0-0); PLATELET COUNT 480 K/uL (156-360); RBC DIS.WIDTH-CV 14.3 % (11.8-14.6); RBC DIS.WIDTH-SD 48.8 % (39-53); RED BLOOD COUNT 2.77 M/uL (3.80-5.20); WHITE BLOOD COUNT 10.2 K/uL (4.1-10.2)
[2017-01-04 07:00] LABS: ANION GAP 9 MEQ/L (2-14); CHLORIDE 104 MEQ/L (99-109); GFR ESTIMATE (CALCULATED) > 59 mL/min/; GLUCOSE 138 mg/dL (70-99); POTASSIUM 3.4 MEQ/L (3.7-5.4); SAMPLE HEMOLYSIS CHECK 0; SAMPLE ICTERIC CHECK 0; SAMPLE LIPEMIA CHECK 0; SODIUM 141 MEQ/L (136-147); UREA NITROGEN (BUN) 36 mg/dL (9-23)
[2017-01-04 07:11] LABS: MAGNESIUM 2.1 mg/dl (1.3-2.7)
[2017-01-04 09:13] LABS: POINT-OF-CARE METER ID UU14162636
[2017-01-04 13:00] LABS: POINT-OF-CARE METER ID UU14162636
[2017-01-04 16:08] LABS: HEMATOCRIT 26.1 % (36.0-46.0); MCHC 33.7 G/DL (30.0-36.0); MCV 94.9 FL (83-99); NRBC (%) 0.1 /100 WBC (0-0); PLATELET COUNT 579 K/uL (156-360); RBC DIS.WIDTH-CV 14.6 % (11.8-14.6); RBC DIS.WIDTH-SD 50.2 % (39-53); RED BLOOD COUNT 2.75 M/uL (3.80-5.20)
[2017-01-04 16:29] LABS: ANION GAP 6 MEQ/L (2-14); CHLORIDE 105 MEQ/L (99-109); GFR ESTIMATE (CALCULATED) > 59 mL/min/; POTASSIUM 3.7 MEQ/L (3.7-5.4); SAMPLE HEMOLYSIS CHECK 0; SAMPLE ICTERIC CHECK 0; SAMPLE LIPEMIA CHECK 0; SODIUM 137 MEQ/L (136-147); UREA NITROGEN (BUN) 33 mg/dL (9-23)
[2017-01-04 16:30] LABS: BASE EXCESS 0.9 mEq/L (-3 to +3); BICARBONATE 26.6 mEq/L (22-26); CARBOXY HGB 1.8 % (0-5); METHEMOGLOBIN 1.6 % (0-1.5); PO2 76 mm Hg (80-100)
[2017-01-04 16:31] LABS: GLUCOSE 236 mg/dL (70-99)
[2017-01-04 16:31] LABS: COMMENTS - BLOOD GASES A+C+; DEVICE 980; FI02 70 %; MECHANICAL RATE 10 resp/min; MODE A/C; PCO2 47 mm Hg (35-45); PEEP 5 CM/H20; SITE LR; TIDAL VOLUME 360 ML; TOTAL RESP RATE 10 resp/min; pH 7.36 (7.35-7.45)
[2017-01-04 22:17] LABS: POINT-OF-CARE METER ID UU14174217
[2017-01-05] VITALS (24 sets, daily range): BP systolic 115–163; BP diastolic 65–88
[2017-01-05 06:21] LABS: HEMATOCRIT 22.3 % (36.0-46.0); MCH 32.5 PG (29.0-34.0); MCHC 34.1 G/DL (30.0-36.0); MCV 95.3 FL (83-99); MEAN PLAT.VOLUME 9.2 uM^3 (9.5-12.4); PLATELET COUNT 440 K/uL (156-360); RBC DIS.WIDTH-CV 14.6 % (11.8-14.6); RBC DIS.WIDTH-SD 50.3 % (39-53); RED BLOOD COUNT 2.34 M/uL (3.80-5.20); WHITE BLOOD COUNT 14.1 K/uL (4.1-10.2)
[2017-01-05 06:51] LABS: ANION GAP 9 MEQ/L (2-14); CHLORIDE 108 MEQ/L (99-109); GFR ESTIMATE (CALCULATED) > 59 mL/min/; GLUCOSE 131 mg/dL (70-99); MAGNESIUM 2.1 mg/dl (1.3-2.7); POTASSIUM 4.2 MEQ/L (3.7-5.4); SAMPLE HEMOLYSIS CHECK 0; SAMPLE ICTERIC CHECK 0; SAMPLE LIPEMIA CHECK 0; SODIUM 142 MEQ/L (136-147); UREA NITROGEN (BUN) 37 mg/dL (9-23)
[2017-01-05 08:36] LABS: POINT-OF-CARE METER ID UU14174217
[2017-01-05 20:39] LABS: POINT-OF-CARE METER ID UU14208751
[2017-01-06] VITALS (24 sets, daily range): BP systolic 118–174; BP diastolic 59–107
[2017-01-06 06:24] LABS: ANION GAP 8 MEQ/L (2-14); CHLORIDE 108 MEQ/L (99-109); GFR ESTIMATE (CALCULATED) > 59 mL/min/; GLUCOSE 134 mg/dL (70-99); MAGNESIUM 2.1 mg/dl (1.3-2.7); POTASSIUM 4.1 MEQ/L (3.7-5.4); SAMPLE HEMOLYSIS CHECK 0; SAMPLE ICTERIC CHECK 0; SAMPLE LIPEMIA CHECK 0; SODIUM 141 MEQ/L (136-147); UREA NITROGEN (BUN) 34 mg/dL (9-23)
[2017-01-06 21:08] LABS: POINT-OF-CARE METER ID UU14174217
[2017-01-07] VITALS (24 sets, daily range): BP systolic 111–184; BP diastolic 64–100
[2017-01-07 06:03] LABS: HEMATOCRIT 23.8 % (36.0-46.0); MCH 30.6 PG (29.0-34.0); MCHC 31.9 G/DL (30.0-36.0); NRBC (%) 0.2 /100 WBC (0-0); PLATELET COUNT 478 K/uL (156-360); RBC DIS.WIDTH-CV 14.6 % (11.8-14.6); RBC DIS.WIDTH-SD 50.2 % (39-53); RED BLOOD COUNT 2.48 M/uL (3.80-5.20); WHITE BLOOD COUNT 13.1 K/uL (4.1-10.2)
[2017-01-07 06:26] LABS: ALKALINE PHOSPHATASE 82 IU/L (3-129); ANION GAP 7 MEQ/L (2-14); CHLORIDE 108 MEQ/L (99-109); DIRECT BILIRUBIN 0.1 mg/dL (0.0-0.3); GFR ESTIMATE (CALCULATED) > 59 mL/min/; GLUCOSE 129 mg/dL (70-99); MAGNESIUM 2.2 mg/dl (1.3-2.7); POTASSIUM 4.4 MEQ/L (3.7-5.4); PREALBUMIN 30.6 mg/dL (10-40); SAMPLE HEMOLYSIS CHECK 0; SAMPLE ICTERIC CHECK 0; SAMPLE LIPEMIA CHECK 0; SODIUM 140 MEQ/L (136-147); TRIGLYCERIDES 147 MG/DL (Normal: <150); UREA NITROGEN (BUN) 37 mg/dL (9-23)
[2017-01-07 06:28] LABS: TOTAL BILIRUBIN 0.3 MG/DL (0.0-1.0)
[2017-01-07 06:44] LABS: ABS NEUTROPHIL COUNT 9.8; BAND NEUTROPHILS 0.9 % (0-8.0); EOSINOPHIL ABS CT 0; INSTRUMENT ABS NEUTROPHIL CT 8.7 K/uL; LYMPHOCYTES 13.1 % (15.0-45.0); METAMYELOCYTES 4.4 %; MYELOCYTES 0.9 %; PLAT.SUFFICIENCY INCREASED; SEG.NEUTROPHILS 73.7 % (46.0-76.0); SMUDGE CELLS 2.6
[2017-01-07 21:49] LABS: POINT-OF-CARE METER ID UU13113731
[2017-01-08] VITALS (9 sets, daily range): BP systolic 120–151; BP diastolic 66–90
[2017-01-08 05:25] LABS: HEMATOCRIT 31.8 % (36.0-46.0); MCH 32.8 PG (29.0-34.0); MCV 96.7 FL (83-99); NRBC (%) 0.4 /100 WBC (0-0); RBC DIS.WIDTH-CV 14.7 % (11.8-14.6); RBC DIS.WIDTH-SD 50.4 % (39-53); RED BLOOD COUNT 3.29 M/uL (3.80-5.20); WHITE BLOOD COUNT 14.2 K/uL (4.1-10.2)
[2017-01-08 05:41] LABS: ANION GAP 8 MEQ/L (2-14); CHLORIDE 108 MEQ/L (99-109); GFR ESTIMATE (CALCULATED) > 59 mL/min/; MAGNESIUM 1.9 mg/dl (1.3-2.7); POTASSIUM 4.3 MEQ/L (3.7-5.4); SAMPLE HEMOLYSIS CHECK 0; SAMPLE ICTERIC CHECK 0; SAMPLE LIPEMIA CHECK 0; SODIUM 140 MEQ/L (136-147); UREA NITROGEN (BUN) 33 mg/dL (9-23)
[2017-01-08 05:42] LABS: GLUCOSE 88 mg/dL (70-99)
[2017-01-08 06:56] LABS: ABS NEUTROPHIL COUNT 7.9; ATYPICAL LYMPHOCYTE 6.2 %; BAND NEUTROPHILS 1.8 % (0-8.0); EOSINOPHIL ABS CT 0.4; EOSINOPHILS 2.6 % (0-5.0); INSTRUMENT ABS NEUTROPHIL CT 7.3 K/uL; LYMPHOCYTES 23.9 % (15.0-45.0); MEAN PLAT.VOLUME 8.9 uM^3 (9.5-12.4); NUCLEATED RBC'S 0.9; PLAT.SUFFICIENCY INCREASED; PLATELET COUNT 470 K/uL (156-360); POIKILOCYTOSIS 1+
[2017-01-08 14:17] LABS: URINE UREA NITROGEN 8540 MG/24 HR
[2017-01-08 20:51] LABS: POINT-OF-CARE METER ID UU13113748
[2017-01-09] VITALS: BP 130/73
[2017-01-09 04:00] VITALS: BP 116/61
[2017-01-09 05:36] LABS: HEMATOCRIT 30.6 % (36.0-46.0); MCH 32.9 PG (29.0-34.0); MCV 96.8 FL (83-99); MEAN PLAT.VOLUME 8.9 uM^3 (9.5-12.4); NRBC (%) 0.2 /100 WBC (0-0); PLATELET COUNT 397 K/uL (156-360); RBC DIS.WIDTH-CV 15.1 % (11.8-14.6); RBC DIS.WIDTH-SD 52.3 % (39-53); RED BLOOD COUNT 3.16 M/uL (3.80-5.20); WHITE BLOOD COUNT 13.8 K/uL (4.1-10.2)
[2017-01-09 06:02] LABS: ANION GAP 7 MEQ/L (2-14); CHLORIDE 108 MEQ/L (99-109); GFR ESTIMATE (CALCULATED) > 59 mL/min/; GLUCOSE 96 mg/dL (70-99); MAGNESIUM 1.8 mg/dl (1.3-2.7); POTASSIUM 4.7 MEQ/L (3.7-5.4); SAMPLE HEMOLYSIS CHECK 0; SAMPLE ICTERIC CHECK 0; SAMPLE LIPEMIA CHECK 0; SODIUM 135 MEQ/L (136-147); UREA NITROGEN (BUN) 33 mg/dL (9-23)
[2017-01-09 08:00] VITALS: BP 132/76
[2017-01-09 12:00] VITALS: BP 103/56
[2017-01-09 16:00] VITALS: BP 107/61
[2017-01-09 20:00] VITALS: BP 113/71
[2017-01-09 20:29] LABS: POINT-OF-CARE METER ID UU14208751
[2017-01-10] VITALS (7 sets, daily range): BP systolic 100–125; BP diastolic 50–72
[2017-01-10 06:03] LABS: MCH 32.3 PG (29.0-34.0); MCHC 33.5 G/DL (30.0-36.0); MCV 96.3 FL (83-99); MEAN PLAT.VOLUME 8.7 uM^3 (9.5-12.4); PLATELET COUNT 340 K/uL (156-360); RBC DIS.WIDTH-CV 15.1 % (11.8-14.6); RBC DIS.WIDTH-SD 51.8 % (39-53); RED BLOOD COUNT 3.22 M/uL (3.80-5.20)
[2017-01-10 06:34] LABS: ANION GAP 7 MEQ/L (2-14); CHLORIDE 111 MEQ/L (99-109); GFR ESTIMATE (CALCULATED) > 59 mL/min/; GLUCOSE 99 mg/dL (70-99); POTASSIUM 4.9 MEQ/L (3.7-5.4); SAMPLE HEMOLYSIS CHECK 0; SAMPLE ICTERIC CHECK 0; SAMPLE LIPEMIA CHECK 0; SODIUM 136 MEQ/L (136-147); UREA NITROGEN (BUN) 31 mg/dL (9-23)
[2017-01-10 09:09] LABS: POINT-OF-CARE METER ID UU14208751
[2017-01-10 23:31] LABS: POINT-OF-CARE METER ID UU14208750
[2017-01-11] VITALS (10 sets, daily range): BP systolic 105–173; BP diastolic 54–92
[2017-01-11 06:27] LABS: HEMATOCRIT 31.6 % (36.0-46.0); MCH 31.9 PG (29.0-34.0); MCHC 32.9 G/DL (30.0-36.0); MCV 96.9 FL (83-99); MEAN PLAT.VOLUME 8.8 uM^3 (9.5-12.4); PLATELET COUNT 311 K/uL (156-360); RBC DIS.WIDTH-CV 15.3 % (11.8-14.6); RBC DIS.WIDTH-SD 53.6 % (39-53); RED BLOOD COUNT 3.26 M/uL (3.80-5.20); WHITE BLOOD COUNT 13.3 K/uL (4.1-10.2)
[2017-01-11 06:55] LABS: ANION GAP 10 MEQ/L (2-14); CHLORIDE 110 MEQ/L (99-109); GFR ESTIMATE (CALCULATED) > 59 mL/min/; GLUCOSE 95 mg/dL (70-99); MAGNESIUM 2.3 mg/dl (1.3-2.7); SAMPLE HEMOLYSIS CHECK 0; SAMPLE ICTERIC CHECK 0; SAMPLE LIPEMIA CHECK 0; SODIUM 137 MEQ/L (136-147); UREA NITROGEN (BUN) 39 mg/dL (9-23)
[2017-01-12 03:47] VITALS: BP 117/69
[2017-01-12 07:24] LABS: MCH 31.7 PG (29.0-34.0); MCV 96.2 FL (83-99); MEAN PLAT.VOLUME 9.6 uM^3 (9.5-12.4); PLATELET COUNT 267 K/uL (156-360); RBC DIS.WIDTH-CV 15.2 % (11.8-14.6); RBC DIS.WIDTH-SD 53.1 % (39-53); RED BLOOD COUNT 3.12 M/uL (3.80-5.20); WHITE BLOOD COUNT 11.8 K/uL (4.1-10.2)
[2017-01-12 07:48] LABS: ANION GAP 11 MEQ/L (2-14); CHLORIDE 105 MEQ/L (99-109); GFR ESTIMATE (CALCULATED) > 59 mL/min/; GLUCOSE 102 mg/dL (70-99); MAGNESIUM 2.2 mg/dl (1.3-2.7); POTASSIUM 4.4 MEQ/L (3.7-5.4); SAMPLE HEMOLYSIS CHECK 0; SAMPLE ICTERIC CHECK 0; SAMPLE LIPEMIA CHECK 0; SODIUM 138 MEQ/L (136-147); UREA NITROGEN (BUN) 47 mg/dL (9-23)
[2017-01-12 08:28] VITALS: BP 110/62
[2017-01-12 11:40] VITALS: BP 106/60
[2017-01-12 15:20] VITALS: BP 110/68
[2017-01-12 19:42] VITALS: BP 92/56
[2017-01-12 23:20] VITALS: BP 108/54
[2017-01-13 03:10] VITALS: BP 110/64
[2017-01-13 07:05] LABS: HEMATOCRIT 29.1 % (36.0-46.0); MCH 31.6 PG (29.0-34.0); MCV 95.7 FL (83-99); MEAN PLAT.VOLUME 9.2 uM^3 (9.5-12.4); PLATELET COUNT 254 K/uL (156-360); RBC DIS.WIDTH-CV 14.9 % (11.8-14.6); RBC DIS.WIDTH-SD 52.5 % (39-53); RED BLOOD COUNT 3.04 M/uL (3.80-5.20)
[2017-01-13 07:30] LABS: ANION GAP 9 MEQ/L (2-14); CHLORIDE 104 MEQ/L (99-109); GFR ESTIMATE (CALCULATED) > 59 mL/min/; GLUCOSE 103 mg/dL (70-99); MAGNESIUM 2.1 mg/dl (1.3-2.7); POTASSIUM 4.2 MEQ/L (3.7-5.4); SAMPLE HEMOLYSIS CHECK 0; SAMPLE ICTERIC CHECK 0; SAMPLE LIPEMIA CHECK 0; SODIUM 140 MEQ/L (136-147); UREA NITROGEN (BUN) 50 mg/dL (9-23)
[2017-01-13 08:20] VITALS: BP 129/71
[2017-01-13 15:46] VITALS: BP 104/60
[2017-01-13 20:01] VITALS: BP 102/56
[2017-01-13 23:23] VITALS: BP 111/56
[2017-01-14 07:40] VITALS: BP 122/70
[2017-01-14 08:14] LABS: HEMATOCRIT 31.4 % (36.0-46.0); MCH 31.4 PG (29.0-34.0); MCHC 32.5 G/DL (30.0-36.0); MCV 96.6 FL (83-99); MEAN PLAT.VOLUME 9.3 uM^3 (9.5-12.4); PLATELET COUNT 250 K/uL (156-360); RBC DIS.WIDTH-CV 14.5 % (11.8-14.6); RBC DIS.WIDTH-SD 51.2 % (39-53); RED BLOOD COUNT 3.25 M/uL (3.80-5.20)
[2017-01-14 08:45] LABS: ANION GAP 11 MEQ/L (2-14); CHLORIDE 102 MEQ/L (99-109); GFR ESTIMATE (CALCULATED) > 59 mL/min/; GLUCOSE 113 mg/dL (70-99); SAMPLE HEMOLYSIS CHECK 0; SAMPLE ICTERIC CHECK 0; SAMPLE LIPEMIA CHECK 0; SODIUM 137 MEQ/L (136-147); UREA NITROGEN (BUN) 52 mg/dL (9-23)
[2017-01-14 08:47] LABS: POTASSIUM 5.1 MEQ/L (3.7-5.4)
[2017-01-14 15:27] VITALS: BP 126/65
[2017-01-14 23:38] VITALS: BP 109/58
[2017-01-15 07:00] VITALS: BP 118/82
[2017-01-15] MEDS ORDERED: ELIQUIS2.5 MG PO (14:09)
[2017-01-15] MEDS ORDERED: SPIRONOLACTONE50 MG PO (14:10)
[2017-01-15] MEDS ORDERED: LOPRESSOR25 MG PO (14:10)
[2017-01-15 15:35] VITALS: BP 112/75
[2017-01-15 23:56] VITALS: BP 99/59
[2017-01-16 07:00] VITALS: BP 125/69
[2017-01-16 08:35] LABS: HEMATOCRIT 32.9 % (36.0-46.0); MCH 31.7 PG (29.0-34.0); MCHC 33.1 G/DL (30.0-36.0); MCV 95.6 FL (83-99); MEAN PLAT.VOLUME 9.3 uM^3 (9.5-12.4); PLATELET COUNT 276 K/uL (156-360); RBC DIS.WIDTH-CV 14.6 % (11.8-14.6); RED BLOOD COUNT 3.44 M/uL (3.80-5.20); WHITE BLOOD COUNT 12.2 K/uL (4.1-10.2)
[2017-01-16 15:19] VITALS: BP 117/65
[2017-01-16 23:38] VITALS: BP 105/55
[2017-01-17 07:55] VITALS: BP 102/57
== END 2017-01-17 14:10 | disposition home or self-care (01) | DRG 329 ==
LOC: EME 20:30 → EDOF 22:13 → 4WEST 22:13 → 4EAST 22:13 → 2EAST 22:13 → ENRESERV 22:14 → EDOF 12-20 00:25 → 2EAST 12-20 00:37 → ENRESERV 12-20 02:05 → 2EAST 12-20 02:08 → ENRESERV 12-20 02:14 → 2EAST 12-20 02:58 → 4WEST 12-20 03:00 → CANRESERV 12-26 02:31 → ENRESERV 12-26 02:31 → 4EAST 12-26 03:20 → ENRESERV 12-26 11:07 → CANRESERV 12-26 11:07 → ENRESERV 12-26 11:18 → 4WEST 12-26 11:44 → ENRESERV 01-10 08:45 → 2EAST 01-10 11:10
PROVIDERS: Emergency Medicine; Hospitalist; Internal Medicine; Internal Medicine Critical Care Medicine; Physician Assistant; Physician Assistant Medical; Specialist; Student in an Organized Health Care Education/Training Program; Surgery
PROC: 02HV33Z Insertion of Infusion Device into Superior Vena Cava, Percutaneous Approach (ICD-10-PCS; 2016-12-22)
PROC: 3E0436Z Introduction of Nutritional Substance into Central Vein, Percutaneous Approach (ICD-10-PCS; 2016-12-22)
PROC: 0DB80ZZ Excision of Small Intestine, Open Approach (ICD-10-PCS; principal; 2016-12-23)
PROC: 0DN80ZZ Release Small Intestine, Open Approach (ICD-10-PCS; principal; 2016-12-23)
PROC: 03HY32Z Insertion of Monitoring Device into Upper Artery, Percutaneous Approach (ICD-10-PCS; 2016-12-23)
PROC: 30233N1 Transfusion of Nonautologous Red Blood Cells into Peripheral Vein, Percutaneous Approach (ICD-10-PCS; 2016-12-26)
PROC: 5A1955Z Respiratory Ventilation, Greater than 96 Consecutive Hours (ICD-10-PCS; 2016-12-27)
PROC: 0BH17EZ Insertion of Endotracheal Airway into Trachea, Via Natural or Artificial Opening (ICD-10-PCS; 2016-12-27)
PROC: 0B9G8ZZ Drainage of Left Upper Lung Lobe, Via Natural or Artificial Opening Endoscopic (ICD-10-PCS; 2016-12-28)
PROC: 0B9C8ZZ Drainage of Right Upper Lung Lobe, Via Natural or Artificial Opening Endoscopic (ICD-10-PCS; 2016-12-28)
PROC: 0B9J8ZZ Drainage of Left Lower Lung Lobe, Via Natural or Artificial Opening Endoscopic (ICD-10-PCS; 2016-12-28)
PROC: 0B9F8ZZ Drainage of Right Lower Lung Lobe, Via Natural or Artificial Opening Endoscopic (ICD-10-PCS; 2016-12-28)
PROC: 0JQ80ZZ Repair Abdomen Subcutaneous Tissue and Fascia, Open Approach (ICD-10-PCS; 2017-01-04)
PROC: 0B21XEZ Change Endotracheal Airway in Trachea, External Approach (ICD-10-PCS; 2017-01-04)
DX: K56.5 Intestinal adhesions [bands] with obstruction (postinfection) (principal); A41.9 Sepsis, unspecified organism; R65.21 Severe sepsis with septic shock; R57.1 Hypovolemic shock; N39.0 Urinary tract infection, site not specified; B96.1 Klebsiella pneumoniae [K. pneumoniae] as the cause of diseases classified elsewhere; J96.01 Acute respiratory failure with hypoxia; J69.0 Pneumonitis due to inhalation of food and vomit; N17.9 Acute kidney failure, unspecified; E86.0 Dehydration; E87.2 Acidosis; E86.1 Hypovolemia; I82.543 Chronic embolism and thrombosis of tibial vein, bilateral; K91.71 Accidental puncture and laceration of a digestive system organ or structure during a digestive system procedure; T81.31XA Disruption of external operation (surgical) wound, not elsewhere classified, initial encounter; E87.0 Hyperosmolality and hypernatremia; K92.1 Melena; D62 Acute posthemorrhagic anemia; D50.0 Iron deficiency anemia secondary to blood loss (chronic); E83.51 Hypocalcemia; E43 Unspecified severe protein-calorie malnutrition; E27.40 Unspecified adrenocortical insufficiency; T38.0X5A Adverse effect of glucocorticoids and synthetic analogues, initial encounter; I11.0 Hypertensive heart disease with heart failure; I50.32 Chronic diastolic (congestive) heart failure; I27.2 Other secondary pulmonary hypertension; I27.81 Cor pulmonale (chronic); K21.9 Gastro-esophageal reflux disease without esophagitis; E78.5 Hyperlipidemia, unspecified; F41.9 Anxiety disorder, unspecified; G43.909 Migraine, unspecified, not intractable, without status migrainosus; R73.9 Hyperglycemia, unspecified; K44.9 Diaphragmatic hernia without obstruction or gangrene; J44.9 Chronic obstructive pulmonary disease, unspecified; E03.9 Hypothyroidism, unspecified; R00.0 Tachycardia, unspecified; Z68.1 Body mass index [BMI] 19.9 or less, adult; Z86.718 Personal history of other venous thrombosis and embolism; Z87.11 Personal history of peptic ulcer disease; Z86.73 Personal history of transient ischemic attack (TIA), and cerebral infarction without residual deficits; Z90.49 Acquired absence of other specified parts of digestive tract; Z79.01 Long term (current) use of anticoagulants; Z88.1 Allergy status to other antibiotic agents; Z91.041 Radiographic dye allergy status; Z95.828 Presence of other vascular implants and grafts
CPT/HCPCS: 36600; 71010; 71020; 71250; 74020; 74176; 80048; 80048 91; 80053; 80076; 80202; 81003; 81050; 82248; 82272; 82533 91; 82607; 82746; 82803; 82948; 83036; 83605; 83690; 83735; 83880; 84100; 84132 91; 84134; 84478; 84484; 84540; 84630 90; 85014; 85018; 85025; 85025 91; 85027; 85610; 85730; 86850; 86900; 86901; 86920; 87040; 87070; 87077; 87081; 87086; 87106; 87116; 87186; 87205; 87206; 87278; 87641; 88108; 88307; 93306; 93970; 94002; 94003; 94010; 94640; 94640 76; 94667; 94668; 94760; 94799; 97530 GO; 97530 GP; 99202; 99281; 99284; C1751; C9113; J0295; J0330; J0456; J0696; J1100; J1630; J1650; J1720; J1756; J1815; J1940; J2060; J2250; J2270; J2405; J2543; J2704; J2765; J2930; J3010; J3370; J3480; J7030; J7050; J7120; J7512; P9016; S0028; S0030